=== PATIENT | male | born 1960 | race Caucasian/White ===

== ENCOUNTER 2016-12-24 12:17 | Emergency (ER) | payer BC ==
[~2016-12-24] VITALS: Ht 172.7 cm; Wt 109.1 kg
[~2016-12-24 12:17] MED LIST: AMR2 PO; GLCSR500 PO; LISI-729 PO; PRT/20 PO; SIMV20TA2 PO; ZNTT/150 PO
[2016-12-24 12:25] VITALS: TEMP 36.8; Ht 172.7 cm; Wt 109.1 kg
[2016-12-24] MEDS ORDERED: ONDANSETRON INJ 2 MG/ML 2 ML VIAL IV STA (12:47)
[2016-12-24] MEDS ORDERED: HYDROmorphone INJ 1 MG/ML SYR IV STA ×2 (12:47)
[2016-12-24] MEDS ORDERED: SODIUM CHLORIDE 0.9% 1000ML 1,000 ML IV STA (12:47)
--- NOTE | 2016-12-24 12:58 | EMERGENCY ROOM VISIT NOTE ---
History Report prepared by Biju: Sriram Cota Under the Supervision of: Dr. Aniyah Stuart M.D. First contact with patient: 12:41 Chief Complaint: ABDOMINAL PAIN Stated Complaint: SOB, CHEST PAIN, DIARRHEA Nursing Triage Summary: Triage Note: Pt reports generalized abd pain nausea, vomitting and diarrhea x 1 week. pt reports since yesterday he has been short of breath. History of Present Illness The patient is a 56 year old male who presents to the Emergency Room with complaints of worsening sharp abdominal pain for the past 4 days. The patient additionally complains of shortness of breath, weakness, diarrhea, vomiting, bloating, and gas. The patient states that he has a history of diabetes and a cholecystectomy. Source of History: patient Onset: 4 days ago Position: abdomen Quality: sharp Timing: worsening Associated Symptoms: + SOB, + diarrhea, + vomiting, + weakness Review of Systems See HPI for pertinent positives & negatives. A total of 10 systems reviewed and were otherwise negative. Past Medical & Surgical Medical Problems: (1) Diabetes Surgical Problems: (1) History of cholecystectomy Family History Diabetes mellitus FH: cancer Hypertension Social History Smoking Status: Never Smoker Marital Status: Housing Status: lives with family Occupation Status: employed Current/Historical Medications Scheduled Aspirin (Aspirin Ec), 81 MG PO DAILY Atorvastatin (Lipitor), 1 TAB PO DAILY Citalopram (Citalopram Hydrobromide), 1 TAB PO DAILY Insulin Aspart (Novolog Flexpen), 30 UNITS SQ TID Insulin Detemir (Levemir), 34 UNIT SQ DAILY Ondasetron Odt (Zofran Odt), 4 MG SL Q6H Oxycodone/Acetaminophen 5MG/325MG (Percocet 5MG/325MG), 1 TAB PO QID Pantoprazole (Protonix), 20 MG PO DAILY Miscellaneous Medications Amitriptyline Hcl (Elavil), 50 MG PO Cimetidine (Tagamet), 400 MG PO Gabapentin (Neurontin), 100 MG PO Lisinopril (Zestril), 20 MG PO Allergies Coded Allergies: No Known Allergies (Unverified , 07/20/11) Physical Exam Vital Signs Date Time Temp Pulse Resp B/P Pulse Ox O2 Delivery O2 Flow Rate FiO2 12/24/16 15:38 91 12/24/16 14:55 99 18 132/95 97 Room Air 2/11/17 12:45 101 12/24/16 12:25 36.8 111 20 139/87 99 Room Air Physical Exam CONSTITUTIONAL: Moderate painful distress. HEENT: No icterus, moist mucous membranes NECK: No meningismus, trachea is midline. CARDIOVASCULAR: Regular rate, normal perfusion RESPIRATORY: Unlabored breathing. Clear to auscultation. GASTROINTESTINAL: Diffuse abdominal tenderness GENITOURINARY: No flank tenderness MUSCULOSKELETAL: Full range of motion NEUROLOGIC: No acute gross focal deficits. PSYCHIATRIC: Normal affect SKIN: Normal for ethnicity. Medical Decision & Procedures Laboratory Results 12/24/16 12:40 Red Blood Count 5.51, Mean Corpuscular Volume 87.7, Mean Corpuscular Hemoglobin 31.4, Mean Corpuscular Hemoglobin Concent 35.8, Mean Platelet Volume 10.1, Neutrophils (%) (Auto) 69.8, Lymphocytes (%) (Auto) 14.6, Monocytes (%) (Auto) 13.6, Eosinophils (%) (Auto) 1.1, Basophils (%) (Auto) 0.2, Neutrophils # (Auto ) 5.70, Lymphocytes # (Auto) 1.19, Monocytes # (Auto) 1.11, Eosinophils # (Auto ) 0.09, Basophils # (Auto) 0.02 12/24/16 12:40 Test 12/24/16 12:40 12/24/16 14:54 White Blood Count 8.17 K/uL (4.8-10.8) Red Blood Count 5.51 M/uL (4.7-6.1) Hemoglobin 17.3 g/dL (14.0-18.0) Hematocrit 48.3 % (42-52) Mean Corpuscular Volume 87.7 fL (80-100) Mean Corpuscular Hemoglobin 31.4 pg (25-34) Mean Corpuscular Hemoglobin Concent 35.8 g/dl (32-36) Platelet Count 191 K/uL (130-400) Mean Platelet Volume 10.1 fL (7.4-10.4) Neutrophils (%) (Auto) 69.8 % Lymphocytes (%) (Auto) 14.6 % Monocytes (%) (Auto) 13.6 % Eosinophils (%) (Auto) 1.1 % Basophils (%) (Auto) 0.2 % Neutrophils # (Auto) 5.70 K/uL (1.4-6.5) Lymphocytes # (Auto) 1.19 K/uL (1.2-3.4) Monocytes # (Auto) 1.11 K/uL (0.11-0.59) Eosinophils # (Auto) 0.09 K/uL (0-0.5) Basophils # (Auto) 0.02 K/uL (0-0.2) RDW Standard Deviation 43.2 fL (36.4-46.3) RDW Coefficient of Variation 13.5 % (11.5-14.5) Immature Granulocyte % (Auto) 0.7 % Immature Granulocyte # (Auto) 0.06 K/uL (0.00-0.02) Anion Gap 12.0 mmol/L (3-11) Est Creatinine Clear Calc Drug Dose 66.6 ml/min Estimated GFR () 59.9 Estimated GFR (Non- 51.7 BUN/Creatinine Ratio 10.3 (10-20) Calcium Level 9.1 mg/dl (8.5-10.1) Magnesium Level 2.0 mg/dl (1.8-2.4) Total Bilirubin 0.5 mg/dl (0.2-1) Direct Bilirubin 0.1 mg/dl (0-0.2) Aspartate Amino Transf (AST/SGOT) 11 U/L (15-37) Alanine Aminotransferase (ALT/SGPT) 46 U/L (12-78) Alkaline Phosphatase 90 U/L (45-117) Troponin I < 0.015 ng/ml (0-0.045) Total Protein 7.7 gm/dl (6.4-8.2) Albumin 3.8 gm/dl (3.4-5.0) Lipase 133 U/L (73-393) Beta-Hydroxybutyric Acid 1.16 mg/dL (0.2-2.81) Bedside Glucose 354 mg/dl (70-99) Labs reviewed by ED physician. Medications Administered Medications (Trade) Dose Ordered Sig/Caro Route Start Time Stop Time Status Last Admin Dose Admin Sodium Chloride (Nss 1000ml) 1,000 ml @ 0 mls/hr Q0M STAT IV 12/24/16 12:47 12/24/16 12:52 DC 12/24/16 13:00 0 MLS/HR Ondansetron HCl (Zofran Inj) 4 mg NOW STAT IV 12/24/16 12:47 12/24/16 12:53 DC 12/24/16 13:00 4 MG Hydromorphone HCl (Dilaudid Inj) 1 mg PRN STAT IV 12/24/16 12:47 12/24/16 12:53 DC 12/24/16 13:01 1 MG ED Course 1241: Past medical records reviewed. The patient was evaluated in room C7. A complete history and physical examination was performed. 1247: Dilaudid Inj 1mg IV, Zofran Inj 4mg IV, Sodium Chloride 1000 ml @ 0 wide open mls/hr IV Medical Decision Differential diagnoses include but are not limited to; obstruction, diverticulitis, gastroenteritis. 56-year-old presented to the emergency department for several days of nausea and loose stools with multiple contacts sick with gastrointestinal illnesses. Screening evaluations in the emergency room are negative for acute disease. On reexamination at 4:15 PM prior to discharge. Rx Zofran. Impression Primary Impression: Acute gastroenteritis Scribe Attestation The scribe's documentation has been prepared under my direction and personally reviewed by me in its entirety. I confirm that the note above accurately reflects all work, treatment, procedures, and medical decision making performed by me. Departure Information Prescriptions Ondasetron Odt (ZOFRAN ODT) 4 Mg Tab 4 MG SL Q6H for Nausea, #20 TAB Prov: Aniyah Stuart MD 12/24/16 Patient Instructions My [facility]
[2016-12-24] MEDS ORDERED: OPTIRAY 320 IV PRN (13:00)
[2016-12-24 13:06] LABS: BASO % 0.2 %; BASO ABS # 0.02 K/uL (0-0.2); COMPLETE YES; EOS % 1.1 %; HEMATOCRIT 48.3 % (42-52); IG% 0.7 %; LYMPH % 14.6 %; LYMPH ABS # 1.19 K/uL (1.2-3.4); MEAN CELL VOLUME 87.7 fL (80-100); MEAN CORPUSCULAR HEMOGLOBIN 31.4 pg (25-34); MEAN CORPUSCULAR HGB CONC 35.8 g/dl (32-36); MEAN PLATELET VOLUME 10.1 fL (7.4-10.4); MONO % 13.6 %; NEUT % 69.8 %; PLATELET COUNT 191 K/uL (130-400); RED BLOOD COUNT 5.51 M/uL (4.7-6.1); WHITE BLOOD COUNT 8.17 K/uL (4.8-10.8)
[2016-12-24 13:20] LABS: ALT/SGPT 46 U/L (12-78); AST/SGOT 11 U/L (15-37); BLOOD UREA NITROGEN 16 mg/dl (7-18); BUN/CREATININE RATIO 10.3 (10-20); CALCIUM 9.1 mg/dl (8.5-10.1); CARBON DIOXIDE 22 mmol/L (21-32); CHLORIDE 99 mmol/L (98-107); GLUCOSE 391 mg/dl (70-99); POTASSIUM 5.1 mmol/L (3.5-5.1); SODIUM 133 mmol/L (136-145)
--- NOTE | 2016-12-24 13:37 | DIAGNOSTIC IMAGING REPORT ---
SINGLE VIEW CHEST CLINICAL HISTORY: Dyspnea. Atypical chest pain. FINDINGS: An AP, portable, upright chest radiograph is compared to study dated 10/28/2015 and correlated with chest CT dated 11/26/2015 and PET/CT dated 12/14/15. The examination is degraded by portable technique and patient rotation. The cardiomediastinal silhouette is unremarkable. There is minimal bibasilar atelectasis. The lungs and pleural spaces are otherwise clear. No pneumothorax is seen. The bony thorax is grossly intact. IMPRESSION: No acute cardiopulmonary abnormality. Electronically signed by: Coleman Arambula M.D. 12/24/2016 1:35 PM Dictated Date/Time: 12/24/2016 1:33 PM
[2016-12-24 13:47] LABS: ALKALINE PHOSPHATASE 90 U/L (45-117); BETA-HYDROXYBUTYRATE 1.16 mg/dL (0.2-2.81)
[2016-12-24] MEDS ORDERED: OXYC-57 PO (14:33)
[2016-12-24] MEDS ORDERED: LVMI SQ (14:33)
[2016-12-24] MEDS ORDERED: NVLGI/PEN SQ (14:33)
[2016-12-24] MEDS ORDERED: CITA40TA4 PO (14:33)
[2016-12-24] MEDS ORDERED: GABA-112 PO (14:33)
[2016-12-24] MEDS ORDERED: AMT50 PO (14:33)
[2016-12-24] MEDS ORDERED: CIME-56 PO (14:33)
[2016-12-24] MEDS ORDERED: LISI-725 PO (14:33)
[2016-12-24] MEDS ORDERED: ATOR10TA88 PO (14:33)
[2016-12-24] MEDS ORDERED: ASPI81TA28 PO (14:34)
--- NOTE | 2016-12-24 15:37 | DIAGNOSTIC IMAGING REPORT ---
CT SCAN OF THE ABDOMEN AND PELVIS WITH IV CONTRAST CLINICAL HISTORY: Generalized abdominal pain. COMPARISON STUDY: PET/CT dated 12/14/15. TECHNIQUE: Following the IV administration of 116 cc of Optiray 320, CT scan of the abdomen and pelvis is performed from the lung bases to the proximal femora. Images are reviewed in the axial, sagittal, and coronal planes. IV contrast was administered without complication. Automated dose control exposure was utilized. CT DOSE: 1397.76 mGy.cm FINDINGS: Lung bases: The heart is normal in size noting trace pericardial effusion. The lung bases are clear noting bibasilar atelectasis. There is a tiny hiatal hernia. Liver: The contrast-enhanced liver is enlarged, measuring 22.2 cm in length. Liver demonstrates diffusely diminished attenuation consistent with hepatic steatosis. There is no intrahepatic biliary ductal dilatation. The hepatic veins and portal veins are patent. Gallbladder: Surgically absent noting clips in the gallbladder fossa. Spleen: The spleen is enlarged, measuring 15.7 cm in length. Pancreas: Unremarkable. Adrenal glands: Unremarkable. Kidneys: The contrast enhanced kidneys are normal in size and without hydronephrosis. The kidneys enhance symmetrically. Abdominal vasculature: The abdominal aorta is normal in course and caliber. Bowel: There is a small duodenal diverticulum. There are mildly distended loops of small bowel which are filled with enteric contrast. These measure up to 3.6 cm. Trace interloop fluid is noted. There is no transition point and no evidence of bowel obstruction. This may represent a mild nonspecific enteritis. There is mild/moderate sigmoid diverticulosis without CT evidence of acute diverticulitis. The appendix is well-visualized and normal. Peritoneum: There is no intraperitoneal free air or abdominal ascites. Lymphadenopathy: None. Pelvic viscera: The bladder, prostate, and seminal vesicles are normal as visualized. Skeletal structures: No lytic or blastic lesions are seen. There are bilateral pars defects at L5 with grade 1 anterolisthesis of L5-S1. Advanced degenerative disc space narrowing and endplate sclerosis is noted at this level. IMPRESSION: 1. There are mildly distended loops of distal small bowel which are filled with enteric contrast. There are no thick walled bowel loops identified and there is no evidence of bowel obstruction. Trace interloop fluid is noted. The appearance is nonspecific and could represent a mild enteritis. Clinical correlation will be required. 2. Hepatomegaly and hepatic steatosis. 3. Splenomegaly. 4. Additional findings as above. Electronically signed by: Coleman Arambula M.D. 12/24/2016 3:35 PM Dictated Date/Time: 12/24/2016 3:26 PM
[2016-12-24] MEDS ORDERED: ONDA4TAB10 SL (16:14)
[2016-12-24 16:30] VITALS: BP 134/98; PULSE 102; O2SAT 95
== END 2016-12-24 16:31 | disposition home or self-care (01) ==
LOC: C.EDB 12:17 → C.EDC 16:31
DX: K52.9 Noninfective gastroenteritis and colitis, unspecified (principal); E11.9 Type 2 diabetes mellitus without complications; Z90.49 Acquired absence of other specified parts of digestive tract

== ENCOUNTER 2021-02-18 15:56 | Inpatient (IN) ==
--- OUTSIDE RECORDS SUMMARY | 2021-02-18 15:58 | External Medical Summary | Continuity of Care Document ---
:1960 Author Name Devonte Ambriz, Provider Address Unavailable Unavailable , Care Team Providers Name Role Phone Unavailable Unavailable Unavailable CHLOE BURGER Unavailable Unavailable Unavailable Unavailable Unavailable Problems Hepatomegaly (789.1) (R16.0) Metabolic syndrome (277.7) (E88.81) Cough with hemoptysis (786.39) (R04.2) Depression with anxiety (300.4) (F41.8) Hypertension (401.9) (I10) GERD (gastroesophageal reflux disease) (530.81) (K21.9) Diabetic peripheral neuropathy (250.60) (E11.42) Dyslipidemia (272.4) (E78.5) DM type 2 (diabetes mellitus, type 2) (250.00) (E11.9) SANDS (nonalcoholic steatohepatitis) (571.8) (K75.81) Lung mass (786.6) (R91.8) Allergies and Adverse Reactions No Known Drug Allergies (Allergy) Medications Percocet 5-325 MG Oral Tablet; TAKE 1 TABLET EVERY 6 H OURS NEEDED FOR PAIN. , M.D. Refills: 0 Pantoprazole Sodium 20 MG Oral Tablet Delayed Release; TAKE 1 TABLET DAILY. , M.D. Refills: 0 Glimepiride 4 MG Oral Tablet; TAKE 1 TABLET DAILY. , M.D. Refills: 0 Victoza 18 MG/3ML SOLKatina Rodríguez Refills: 0 Lisinopril-hydroCHLOROthiazide 20-12.5 MG Oral Tablet; TAKE 1 TABLET DAILY. , M.D. Refills: 0 metFORMIN HCl - 1000 MG Oral Tablet; TAKE 1 TABLET TWICE FLORENTINO LY. M.D. Refills: 0 Cimetidine 400 MG Oral Tablet; Take 1 tablet twice daily , M .D. Refills: 0 Atorvastatin Calcium 20 MG Oral Tablet; TAKE 1 TABLET DAILY. , M.D. Refills: 0 Amitriptyline HCl - 50 MG Oral Tablet; TAKE 1 TABLET AT BEDT KAE. , M.D. Refills: 0 Aspirin 81 MG TABS; TAKE 1 TABLET DAILY. , M.D. Refills: 0 Procedures History of Colonoscopy (Fiberoptic) Stat us: Completed History of Cholecystectomy Status: Compl eted 20-Jul-2011 0:00 History of Back Surgery Status: Complete d Immunizations PPD On: 07-Dec-2015 9:34 Lot #: [id number], [employer] Family History Father Family history of malignant neoplasm (V16.9) (Z80.9) Status: Active Grandfather Family history of lung cancer (V16.1) (Z80.1) Status: Active Social History - Smoking Status Never smoked tobacco Plan of Treatment Planned Observations Planned Goals not documented Results No Known Results Results not documented
--- OUTSIDE RECORDS SUMMARY | 2021-02-18 15:58 | External Medical Summary | Continuity of Care Document ---
:1960 Author Name Devonte Ambriz, Provider Address Unavailable Unavailable , Care Team Providers Name Role Phone Unavailable Unavailable Unavailable CHLOE BURGER Unavailable Unavailable Unavailable Unavailable Unavailable Problems SANDS (nonalcoholic steatohepatitis) (571.8) (K75.81) DM type 2 (diabetes mellitus, type 2) (250.00) (E11.9) Dyslipidemia (272.4) (E78.5) Diabetic peripheral neuropathy (250.60) (E11.42) GERD (gastroesophageal reflux disease) (530.81) (K21.9) Hypertension (401.9) (I10) Depression with anxiety (300.4) (F41.8) Cough with hemoptysis (786.39) (R04.2) Lung mass (786.6) (R91.8) Metabolic syndrome (277.7) (E88.81) Hepatomegaly (789.1) (R16.0) Allergies and Adverse Reactions No Known Drug [...] Tablet; TAKE 1 TABLET AT BEDT KAE. M.D. Refills: 0 Aspirin 81 MG TABS; [...]
[2021-02-18] MEDS ORDERED: DAPTOmycin 400 MG in SYRINGE 0 ML IV STA (19:01)
[2021-02-18] MEDS ORDERED: PIPERACILLIN/TAZOBACTAM 4.5 GM/120 ML BAG IV STA (19:01)
[2021-02-18 19:44] LABS: Basophils # (auto) 0.01 K/uL (0-0.2); Basophils % (auto) 0.1 %; Eosinophils # (auto) 0.11 K/uL (0-0.5); Hematocrit (blood only) 41.5 % (42-52); Immature Granulocytes # (auto) 0.02 K/uL (0.00-0.02); Immature Granulocytes % (auto) 0.2 %; Lymphocytes # (auto) 1.45 K/uL (1.2-3.4); Lymphocytes % (auto) 13.7 %; Mean Corpuscular Hemoglobin 30.7 pg (25-34); Mean Corpuscular Hgb Conc 36.1 g/dL (32-36); Mean Platelet Volume 10.2 fL (7.4-10.4); Monocytes # (auto) 0.93 K/uL (0.11-0.59); Monocytes % (auto) 8.8 %; Neutrophils # (auto) 8.05 K/uL (1.4-6.5); Neutrophils % (auto) 76.2 %; Platelet Count 226 K/uL (130-400); RDW Coefficient of Variation 12.8 % (11.5-14.5); RDW Standard Deviation 39.1 fL (36.4-46.3); Red Blood Count 4.88 M/uL (4.7-6.1); White Blood Count 10.57 K/uL (4.8-10.8)
[2021-02-18] MEDS: HYDROmorphone INJ 0.5 MG/0.5 ML SYR IV PRN ×2 (19:49→20:06)
[2021-02-18 19:51] LABS: Alanine Aminotransferase 41 U/L (12-78); Albumin Level 3.3 gm/dl (3.4-5.0); Aspartate Aminotransferase 10 U/L (15-37); BUN Creatinine Ratio 13.5 (10-20); Blood Urea Nitrogen 14 mg/dl (7-18); Carbon Dioxide 28 mmol/L (21-32); Chloride 101 mmol/L (98-107); Creatinine Clr Calc Pharmacy 82.7 ml/min; Est GFR (African American) 88.6; Est GFR (Non-African American) 76.4; Glucose 298 mg/dl (70-99); Sodium 133 mmol/L (136-145); Uric Acid 3.6 mg/dl (2.6-7.2)
[2021-02-18 19:56] LABS: Albumin Globulin Ratio 0.7 (0.9-2); Alkaline Phosphatase 111 U/L (45-117); Bilirubin,Total 0.3 mg/dl (0.2-1); Globulin 4.5 gm/dl (2.5-4.0); Total Protein 7.8 gm/dl (6.4-8.2); Troponin I < 0.015 ng/ml (0-0.045)
--- NOTE | 2021-02-18 20:25 | Emergency Department Note ---
Impression & Plan Cellulitis of finger of left hand, Cellulitis of dorsum of hand, Chest pain ED Provider Note INFORMANT: Patient ED PROVIDER(S): Sam Murphy MD CHIEF COMPLAINT: Infection PLAN: Disposition: Admitted Condition: Good Outpatient prescription management: none Referral: None MEDICAL DECISION MAKING: Patient presented to the emergency department noting worsening pain, swelling, and redness in her left hand starting from the third digit. He was seen at his outpatient [facility] clinic today and given a injection of antibiotics. A prescription was written but he did not fill this. The pain escalated and he presented to the ER for evaluation. The patient was quite uncomfortable. He was also noting experiencing some chest pain that started this evening. An ECG was performed and was normal. Blood work was obtained. Troponin was negative. His CBC had a left shift on differential. His white count was at the upper limits of normal. The patient's chemistry panel was unremarkable. Uric acid was within normal limits. Patient's inflammatory markers were elevated. He did have cultures obtained. The patient was given broad-spectrum antibiotics due to his history of diabetes. He was treated with Zosyn and daptomycin. He required IV Dilaudid for pain control. X-ray imaging was ordered. Given the extent of the pain and spreading redness of the hand into the wrist area the patient will benefit from further IV antibiotic treatment and possible consultation. Also w ith his chest pain he will need further evaluation. Consultation was made with Dr. Aubrey Ocasio, [facility] hospitalist service for further management. Triage Nursing notes reviewed and agree them. Additional history obtained from patient's Vital Signs: reviewed and remarkable for borderline tachycardia and significant hypertension Differential diagnosis: Etiologies such as cellulitis, abscess, MRSA infection, dermatitis, drug eruption, necrotizing fasciitis, gout, cardiac sources, as well as others were entertained. Diagnostics interpreted by me: ECG: Rate: 87 Rhythm:Normal sinus [place]:Normal QRS:Normal ST segements:No elevation or depression Other:No PACs or PVCs Cardiac Monitoring:Cardiac monitoring ordered by me: The patient was placed on continuous cardiac monitoring and observed. It revealed a normal sinus rhythm at 95 beats per minute without ectopy or evidence of dysrhythmia. Imaging studies: X-ray imaging of the left hand reveals some soft tissue swelling of the third digit however no evidence of subcu air, fracture, or dislocation present. [facility] The patient is a 60 year old male who presents to the Emergency Room with complaints of left hand infection. This started a few days ago and is spreading from the third finger proximally. He has redness and streaking up the left hand. He feels like it may be from a spider bite. The patient denies any direct trauma to the area. He noted having x-rays and receiving an IM injection of antibiotic today at his outpatient clinic. The patient does have a history of diabetes. The patient also notes the following associated symptoms, chest pain which started this evening. The patient has found no relieving factors. Current pain is rated as 10/10. Pt denies LOC, headache, fevers, chills, diaphoresis, visual changes, neck pain, breathing difficulties, nausea, vomiting, abdominal pain, back pain, numbness, weakness, lymphadenopathy, or ot her complaints. ROS: See above HPI for pertinent positives & negatives. A total of 10 systems reviewed and were otherwise negative. PAST MEDICAL HISTORY:See Below , diabetes PAST SURGICAL HISTORY:See Below, FAMILY HISTORY:See Below SOCIAL HISTORY:See Below, HOME MEDICATIONS:See Below ALLERGIES:See Below VITALS:See Below PHYSICAL EXAMINATION: GENERAL: Awake, alert, very uncomfortable-appearing, in mild distress HENT: Normocephalic, atraumatic. Oropharynx unremarkable. EYES: Normal conjunctiva. Sclera non-icteric. NECK: Inspection normal. Non-tender. Supple. No nuchal rigidity. FROM. No masses. RESPIRATORY: Clear to auscultation. No wheezes. No rales. Normal respiratory effort. CARDIAC: Borderline tachycardic rate. Normal rhythm. No murmurs. No rubs. Extremities warm and well perfused. Pulses equal. No JVD. GI: Soft, non-distended. No tenderness to palpation. No rebound or guarding. No masses. RECTAL: Deferred. MUSCULOSKELETAL: Examination of the left hand reveals a significantly swollen third digit with redness, warmth and tenderness extending from the proximal nail fold approximately through the dorsum aspect of the hand with streaking going up to the wrist concerning for cellulitis. No crepitus. Range of motion of the digit is limited secondary to pain. No discharge present. No vesicles. Cap refill less than 2 seconds. NEURO: Normal sensorium. No sensory or motor deficits noted. SKIN: No rash or jaundice noted. Sam Murphy MD Past Med/Surg History Social History Smoking Status: Never smoker Feels Safe at Home: Yes Allergies Allergies Allergy/AdvReac Type Severity Reaction Status Date / Time No Known Allergies Allergy Unverified 07/20/11 06:01 Home Meds Home Medications Medication Instructions Recorded Confirmed Pantoprazole (Protonix) 20 mg PO DAILY #30 07/20/11 ASPIRIN (ASPIRIN EC) 81 mg PO DAILY #0 12/24/16 ATORVASTATIN (LIPITOR) 1 tab PO DAILY 30 Days #30 tab 12/24/16 Amitriptyline Hcl (Elavil) 50 mg PO #0 tab 12/24/16 Cimetidine (Tagamet) 400 mg PO #0 tab 12/24/16 Citalopram (Citalopram 1 tab PO DAILY 90 Days #90 tab 12/24/16 Hydrobromide) Gabapentin (Neurontin) 100 mg PO #0 cap 12/24/16 Insulin Aspart (NOVOLOG FLEXPEN) 30 unit SUBCUT TID #0 12/24/16 Insulin Detemir (Levemir) 34 unit SUBCUT DAILY #0 12/24/16 Lisinopril (Zestril) 20 mg PO #0 tab 12/24/16 OXYCODONE/ACETAMINOPHEN 5MG/325MG 1 tab PO QID 30 Days #120 tab 12/24/16 (PERCOCET 5MG/325MG) Results & Data (ED) Vital Signs Vital Signs - 24 hr 02/18/21 16:36 02/18/21 20:08 Temperature 37.2 C Temperature Source Temporal Artery Scan Pulse Rate 101 H Pulse Rate [Right] 95 H Pulse Rhythm Regular Pulse Rhythm [Right] Regular Pulse Strength Normal Pulse Strength [Right] Normal Respiratory Rate 20 20 Respiratory Effort / Characteristics Non-Labored Spontaneous Non-Labored Spontaneous Respiratory Depth Normal Normal Blood Pressure 183/109 H Blood Pressure [Right Arm] 187/113 H Blood Pressure Mean 133 Blood Pressure Mean [Right Arm] 137 Blood Pressure Position [Right Arm] Lying Pulse Oximetry 97 100 Oxygen Delivery Method Room Air Room Air Sepsis Recent Fever Within 48 Hours No Sepsis New/Unexplained Change in Mental Status N/A Sepsis Action Taken by Nursing No Action Required Laboratory Data Result diagrams: 02/18/21 19:04 02/18/21 19:04 Lab Results 02/18/21 02/18/21 02/18/21 Range/Units 19:04 19:04 19:04 WBC 10.57 (4.8-10.8) K/uL RBC 4.88 (4.7-6.1) M/uL Hgb 15.0 (14.0-18.0) g/dL Hct 41.5 L (42-52) % MCV 85.0 (80-100) fL MCH 30.7 (25-34) pg MCHC 36.1 H (32-36) g/dL RDW Std Deviation 39.1 (36.4-46.3) fL RDW Coeff of [place] 12.8 (11.5-14.5) % Plt Count 226 (130-400) K/uL MPV 10.2 (7.4-10.4) fL Immature Gran % (Auto) 0.2 % Neut % (Auto) 76.2 % Lymph % (Auto) 13.7 % [place] % (Auto) 8.8 % Eos % (Auto) 1.0 % Baso % (Auto) 0.1 % Neut # (Auto) 8.05 H (1.4-6.5) K/uL Lymph # (Auto) 1.45 (1.2-3.4) K/uL [place] # (Auto) 0.93 H (0.11-0.59) K/uL Eos # (Auto) 0.11 (0-0.5) K/uL Baso # (Auto) 0.01 (0-0.2) K/uL Immature Gran # (Auto) 0.02 (0.00-0.02) K/uL ESR 23 H (0-14) mm/hr Sodium 133 L (136-145) mmol/L Potassium 4.0 (3.5-5.1) mmol/L Chloride 101 (98-107) mmol/L Carbon Dioxide 28 (21-32) mmol/L Anion Gap 4.0 (3-11) BUN 14 (7-18) mg/dl Creatinine 1.06 (0.6-1.4) mg/dl Est Cr Clr Drug Dosing 82.7 ml/min Est GFR ( Amer) 88.6 Est GFR (Non-Af Amer) 76.4 BUN/Creatinine Ratio 13.5 (10-20) Glucose 298 H (70-99) mg/dl Uric Acid 3.6 (2.6-7.2) mg/dl Calcium 9.0 (8.5-10.1) mg/dl Total Bilirubin 0.3 (0.2-1) mg/dl AST 10 L (15-37) U/L ALT 41 (12-78) U/L Alkaline Phosphatase 111 (45-117) U/L Troponin I < 0.015 (0-0.045) ng/ml C-Reactive Protein 4.30 H (0-0.29) mg/dl Total Protein 7.8 (6.4-8.2) gm/dl Albumin 3.3 L (3.4-5.0) gm/dl Globulin 4.5 H (2.5-4.0) gm/dl Albumin/Globulin Ratio 0.7 L (0.9-2) Procalcitonin (0-0.5) ng/ml COVID-19 Eval Order 02/18/21 02/18/21 Range/Units 19:04 19:58 WBC (4.8-10.8) K/uL RBC (4.7-6.1) M/uL Hgb (14.0-18.0) g/dL Hct (42-52) % MCV (80-100) fL MCH (25-34) pg MCHC (32-36) g/dL RDW Std Deviation (36.4-46.3) fL RDW Coeff of [place] (11.5-14.5) % Plt Count (130-400) K/uL MPV (7.4-10.4) fL Immature Gran % (Auto) % Neut % (Auto) % Lymph % (Auto) % [place] % (Auto) % Eos % (Auto) % Baso % (Auto) % Neut # (Auto) (1.4-6.5) K/uL Lymph # (Auto) (1.2-3.4) K/uL [place] # (Auto) (0.11-0.59) K/uL Eos # (Auto) (0-0.5) K/uL Baso # (Auto) (0-0.2) K/uL Immature Gran # (Auto) (0.00-0.02) K/uL ESR (0-14) mm/hr Sodium (136-145) mmol/L Potassium (3.5-5.1) mmol/L Chloride (98-107) mmol/L Carbon Dioxide (21-32) mmol/L Anion Gap (3-11) BUN (7-18) mg/dl Creatinine (0.6-1.4) mg/dl Est Cr Clr Drug Dosing ml/min Est GFR ( Amer) Est GFR (Non-Af Amer) BUN/Creatinine Ratio (10-20) Glucose (70-99) mg/dl Uric Acid (2.6-7.2) mg/dl Calcium (8.5-10.1) mg/dl Total Bilirubin (0.2-1) mg/dl AST (15-37) U/L ALT (12-78) U/L Alkaline Phosphatase (45-117) U/L Troponin I (0-0.045) ng/ml C-Reactive Protein (0-0.29) mg/dl Total Protein (6.4-8.2) gm/dl Albumin (3.4-5.0) gm/dl Globulin (2.5-4.0) gm/dl Albumin/Globulin Ratio (0.9-2) Procalcitonin < 0.05 (0-0.5) ng/ml COVID-19 Eval Order [facility]FluRsv at [facility] Administered Medications Discontinued Medications Hydromorphone HCl (Hydromorphone Inj 0.5 Mg/0.5 Ml Syr) 0.5 mg IV Q15M PRN PRN Reason: Pain Stop: 03/04/21 19:02 Last Admin: 02/18/21 20:06 Dose: 0.5 mg Documented by: [id number] Admin: 02/18/21 19:49 Dose: 0.5 mg Documented by: [id number] Daptomycin 400 mg/ Syringe 8 mls @ 4 mls/min IV NOW STA; Protocol Stop: 02/18/21 19:02 Last Admin: 02/18/21 20:03 Dose: 4 mls/min Documented by: [id number] Piperacillin Sod/Tazobactam Sod (Zosyn) 4.5 gm in 120 mls @ 200 mls/hr IV NOW STA Stop: 02/18/21 19:36 Last Admin: 02/18/21 20:03 Dose: 200 mls/hr Documented by: [id number] Discharge Plan Visit Data Chief Complaint: Infection Stated Complaint: LT HAND, FINGER INFECTION ED Provider: Sam Murphy Discharge Problem: Cellulitis of finger of left hand, Cellulitis of dorsum of hand, Chest pain Forms Stand Alone Forms: [facility] Prescriptions Prescriptions: No Action Pantoprazole (Protonix) 20 MG tablet 20 mg PO DAILY Qty: 30 RF: 0 ATORVASTATIN (LIPITOR) 10 MG tablet 1 tab PO DAILY 30 Days Qty: 30 RF: 5 Amitriptyline Hcl (Elavil) 50 MG tablet 50 mg PO Qty: 0 RF: 0 Cimetidine (Tagamet) 400 MG tablet 400 mg PO Qty: 0 RF: 0 Citalopram (Citalopram Hydrobromide) 40 MG tablet 1 tab PO DAILY 90 Days Qty: 90 RF: 1 Gabapentin (Neurontin) 100 MG capsule 100 mg PO Qty: 0 RF: 0 Insulin Aspart (NOVOLOG FLEXPEN) 100 UNITS/ML INJECTION 30 unit subcut TID Qty: 0 RF: 0 Insulin Detemir (Levemir) 100 UNITS/ML INJECTION 34 unit subcut DAILY Qty: 0 RF: 0 Lisinopril (Zestril) 20 MG tablet 20 mg PO Qty: 0 RF: 0 OXYCODONE/ACETAMINOPHEN 5MG/325MG (PERCOCET 5MG/325MG) tablet 1 tab PO QID 30 Days Qty: 120 RF: 0 ASPIRIN (ASPIRIN EC) 81 MG tablet 81 mg PO DAILY Qty: 0 RF: 0
[2021-02-18] MEDS ORDERED: traMADol HCL 50 MG TABLET PO PRN (20:30)
[2021-02-18] MEDS ORDERED: ACETAMINOPHEN 325 MG TAB PO PRN (20:30)
[2021-02-18] MEDS ORDERED: lisinopril 5 MG TAB PO ONE (20:31)
--- NOTE | 2021-02-18 20:44 | XRay Report ---
XR hand LT min 3V routine CLINICAL HISTORY: 3rd finger and hand cellulitis COMPARISON: None. DISCUSSION: No acute fractures or dislocations are visualized. There is an old fifth metacarpal fract ure. There are osteoarthritic changes most pronounced the level the distal interphalangeal joints. Th ere is soft tissue edema most pronounced involving the third finger. There are no bony destructive ch anges to indicate acute osteomyelitis IMPRESSION: 1. Old posterior back changes 2. Osteoarthritic changes 3. No acute fractures 4. Soft tissue swelling 5. No conventional radiographic evidence of acute osteomyelitis ACT 112: Negative or not required by law. Electronically signed by: Christian Villaseñor M.D. 02/18/2021 8:42 PM
[2021-02-18 20:49] LABS: Magnesium 2.1 mg/dl (1.8-2.4)
[2021-02-18] MEDS: MoRPHine SULFATE 4 MG/ML 1 ML CARP\\VIAL IV PRN (20:59)
[2021-02-18 21:01] LABS: Influenza A virus by PCR Negative (Neg); Influenza B virus by PCR Negative (Neg); RSV by PCR Negative (Neg); SARS CoV2 RNA(COVID-19) InHosp NEGATIVE (Negative)
[2021-02-18] MEDS ORDERED: INSULIN GLARGINE SOLOSTAR 100 UNITS/ML 3 ML PEN SC STA (21:04)
--- NOTE | 2021-02-18 21:29 | History & Physical Report ---
Date of Service February 18, 2021 Assessment & Plan (1) Asymptomatic hypertensive urgency: Secondary to pain from left middle finger cellulitis, no sepsis for now History medication noncompliance hyperlipidemia, currently not on statin secondary to medication noncompliance DM2 insulin requiring, patient hyperglycemic secondary to medication noncompliance, hemoglobin A1c of 10.17 January 2018 nonalcoholic steatohepatitis as per records anxiety/mood disorder, stable off maintenance medications OBS Medical telemetry Doxycycline Orthopedics consult Re: Left middle finger cellulitis Resume home lisinopril Basal insulin, ISS BG goal [id number], carb count coverage, update hemoglobin A1c DM education DVT prophylaxis. Lovenox subcu Full code Text document was generated using [employer] voice recognition software. It may contain grammatical or spelling errors. Kindly contact undersigned for clarification of any documentation item in question. History of Present Illness Chief Complaint: Left middle finger swelling Primary Care Provider: Dr. Dickinson History obtained from patient, family, and records. Medical history significant for hypertension, hyperlipidemia, DM2 insulin requiring, hyperlipidemia, nonalcoholic steatohepatitis, GERD, anxiety/mood disorder, medication noncompliance, hx terminated medication usage agreement as per outpatient records (failed urine drug screen 2016). Last confinement 2010 under General Surgery service for acute cholecystitis status post cholecystectomy. Patient stopped taking home medications (lisinopril, atorvastatin, home insulin, etc.) more than two years ago because he felt sick from taking them. Last PCP visit was 3 years ago. 2 days history of achy swelling on left middle finger with note of some yellow drainage. No fever, no chills. No recollection of recent trauma. Patient seen at PCPs office today. Impression was finger cellulitis. IM ceftriaxone given at the office. Patient prescribed Keflex and Bactrim. Patient instructed to follow-up at the office tomorrow and to go to ER for worsening symptoms. SBP noted to be 210s at PCPs office. Patient denies headache, chest pain, shortness of breath, abdominal pain. Daptomycin and Zosyn administered at the ER. Medical History as above Surgical History : Back surgery, cholecystectomy Family History : DM, stomach cancer, hypertension, heart disease Personal/Social history : Non-smoker, no recent EtOH intake in years as per patient/, lawn care business Allergies Allergy/AdvReac Type Severity Reaction Status Date / Time No Known Allergies Allergy Unverified 02/18/21 22:13 Home Medications Medication Instructions Recorded Confirmed Type No Known Home Medications 02/18/21 02/18/21 History Past Med/Surg History Social History Smoking Status: Never smoker Hx Alcohol Use: No Hx Substance Use: Yes 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: Days (ago) 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 Other:: crystal meth - "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" Beliefs That Will Affect Care: None Current Living Situation: Spouse and Family Feels Safe at Home: Yes Safety Concerns: Feels Safe At This Time Review of Systems Review of Systems: As per HPI, all 10 systems reviewed, all other ROS negative Physical Exam Physical Exam: GENERAL: Slightly uncomfortable, obese, pleasant, no respiratory distress SKIN: Normal color, warm HEENT: Alopecia, pink palpebral conjunctivae, no ptosis, dry buccal mucosa NECK : Supple, no tenderness CHEST : CTA, no tenderness HEART : RRR, no obvious murmurs ABDOMEN: Some distention, nontender EXTREMITIES : No LE swelling/tenderness, tender indurated left middle finger with swelling with some extension to the hand, no other conspicuous deformities noted NEUROLOGIC : Coherent, no facial asymmetry, no other gross focality Results & Data Results & Data ([facility]) Vital Signs (Past 12 Hours) Vital Signs Temp Pulse Pulse Resp BP BP Pulse Ox 02/18/21 20:08 95 H 20 187/113 H 100 02/18/21 16:36 37.2 C 101 H 20 183/109 H 97 Laboratory Results Laboratory Results WBC 10.57 K/uL (4.8-10.8) 02/18/21 19:04 RBC 4.88 M/uL (4.7-6.1) 02/18/21 19:04 Hgb 15.0 g/dL (14.0-18.0) 02/18/21 19:04 Hct 41.5 % (42-52) L 02/18/21 19:04 MCV 85.0 fL (80-100) 02/18/21 19:04 MCH 30.7 pg (25-34) 02/18/21 19:04 MCHC 36.1 g/dL (32-36) H 02/18/21 19:04 RDW Std Deviation 39.1 fL (36.4-46.3) 02/18/21 19:04 RDW Coeff of [place] 12.8 % (11.5-14.5) 02/18/21 19:04 Plt Count 226 K/uL (130-400) 02/18/21 19:04 MPV 10.2 fL (7.4-10.4) 02/18/21 19:04 Immature Gran % (Auto) 0.2 % 02/18/21 19:04 Neut % (Auto) 76.2 % 02/18/21 19:04 Lymph % (Auto) 13.7 % 02/18/21 19:04 Price % (Auto) 8.8 % 02/18/21 19:04 Eos % (Auto) 1.0 % 02/18/21 19:04 Baso % (Auto) 0.1 % 02/18/21 19:04 Neut # (Auto) 8.05 K/uL (1.4-6.5) H 02/18/21 19:04 Lymph # (Auto) 1.45 K/uL (1.2-3.4) 02/18/21 19:04 Price # (Auto) 0.93 K/uL (0.11-0.59) H 02/18/21 19:04 Eos # (Auto) 0.11 K/uL (0-0.5) 02/18/21 19:04 Baso # (Auto) 0.01 K/uL (0-0.2) 02/18/21 19:04 Immature Gran # (Auto) 0.02 K/uL (0.00-0.02) 02/18/21 19:04 ESR 23 mm/hr (0-14) H 02/18/21 19:04 Sodium 133 mmol/L (136-145) L 02/18/21 19:04 Potassium 4.0 mmol/L (3.5-5.1) 02/18/21 19:04 Chloride 101 mmol/L (98-107) 02/18/21 19:04 Carbon Dioxide 28 mmol/L (21-32) 02/18/21 19:04 Anion Gap 4.0 (3-11) 02/18/21 19:04 BUN 14 mg/dl (7-18) 02/18/21 19:04 Creatinine 1.06 mg/dl (0.6-1.4) 02/18/21 19:04 Est Cr Clr Drug Dosing 82.7 ml/min 02/18/21 19:04 Est GFR ( Amer) 88.6 02/18/21 19:04 Est GFR (Non-Af Amer) 76.4 02/18/21 19:04 BUN/Creatinine Ratio 13.5 (10-20) 02/18/21 19:04 Glucose 298 mg/dl (70-99) H 02/18/21 19:04 Uric Acid 3.6 mg/dl (2.6-7.2) 02/18/21 19:04 Calcium 9.0 mg/dl (8.5-10.1) 02/18/21 19:04 Magnesium 2.1 mg/dl (1.8-2.4) 02/18/21 19:04 Magnesium Cancelled 02/18/21 19:04 Total Bilirubin 0.3 mg/dl (0.2-1) 02/18/21 19:04 AST 10 U/L (15-37) L 02/18/21 19:04 ALT 41 U/L (12-78) 02/18/21 19:04 Alkaline Phosphatase 111 U/L (45-117) 02/18/21 19:04 Troponin I < 0.015 ng/ml (0-0.045) 02/18/21 19:04 C-Reactive Protein 4.30 mg/dl (0-0.29) H 02/18/21 19:04 Total Protein 7.8 gm/dl (6.4-8.2) 02/18/21 19:04 Albumin 3.3 gm/dl (3.4-5.0) L 02/18/21 19:04 Globulin 4.5 gm/dl (2.5-4.0) H 02/18/21 19:04 Albumin/Globulin Ratio 0.7 (0.9-2) L 02/18/21 19:04 Procalcitonin < 0.05 ng/ml (0-0.5) 02/18/21 19:04 COVID-19 Eval Order [facility]FluRsv at [facility] 02/18/21 19:58 SARS-CoV-2 (PCR) NEGATIVE (Negative) 02/18/21 19:58 Influenza Type A (PCR) Negative (Neg) 02/18/21 19:58 Influenza Type B (PCR) Negative (Neg) 02/18/21 19:58 RSV (RT-PCR) Negative (Neg) 02/18/21 19:58 Impressions Hand X-Ray 02/18/21 19:46 XR hand LT min 3V routine CLINICAL HISTORY: 3rd finger and hand cellulitis COMPARISON: None. DISCUSSION: No acute fractures or dislocations are visualized. There is an old fifth metacarpal fracture. There are osteoarthritic changes most pronounced the level the distal interphalangeal joints. There is soft tissue edema most pronounced involving the third finger. There are no bony destructive changes to indicate acute osteomyelitis IMPRESSION: 1. Old posterior back changes 2. Osteoarthritic changes 3. No acute fractures 4. Soft tissue swelling 5. No conventional radiographic evidence of acute osteomyelitis ACT 112: Negative or not required by law. Electronically signed by: Christian Villaseñor M.D. 02/18/2021 8:42 PM Diagnostic Findings EKG as per my interpretation: Rate 85, NSR, normal axis, no ischemia
[2021-02-18] MEDS ORDERED: DOXYCYCLINE HYCLATE 100 MG in DEXTROSE 5% 100 ML IV STA (21:33)
[2021-02-18] MEDS ORDERED: INSULIN ASPART 100 UNITS/ML 3 ML PEN SC SCH (21:41)
[2021-02-18] MEDS ORDERED: LABETALOL HCL IV 5 MG/ML 20ML IV STA (23:31)
[2021-02-18] MEDS ORDERED: traMADol HCL 50 MG TABLET PO STA (23:32)
[2021-02-18] MEDS ORDERED: lisinopril 5 MG TAB PO STA (23:33)
[2021-02-19 00:07] LABS: Partial Thromboplastin Ratio 1.1; Partial Thromboplastin Time 27.9 Seconds (21.0-31.0)
[2021-02-19] MEDS ORDERED: SODIUM CHLORIDE 0.9% 1000ML 1,000 ML IV ONE (01:11)
[2021-02-19] MEDS ORDERED: PROMETHAZINE HCL 12.5 MG in SODIUM CHLORIDE 0.9% 50 ML IV PRN (01:11)
[2021-02-19] MEDS ORDERED: CARBOHYDRATES FOR HYPOGLYCEMIA PO PRN ×2 (01:15→01:26)
[2021-02-19] MEDS ORDERED: GLUCOSE 10 TABS/TUBE PO PRN ×2 (01:15→01:26)
[2021-02-19] MEDS ORDERED: GLUCOSE 40% GEL 15 GM TUBE PO PRN ×2 (01:15→01:26)
[2021-02-19] MEDS ORDERED: DEXTROSE 50% 50 ML SYRINGE IV PRN ×2 (01:15→01:26)
[2021-02-19] MEDS ORDERED: GLUCAGON FOR INJ 1 MG VIAL IM PRN (01:15)
[2021-02-19] MEDS ORDERED: GLUCAGON FOR INJ 1 MG VIAL SQ PRN (01:26)
[2021-02-19] MEDS ORDERED: LORazepam 0.25 MG/0.5 ML VIAL IV PRN (01:26)
[2021-02-19] MEDS ORDERED: OPTIRAY 320 125ml IV ONE (01:47)
[2021-02-19] MEDS: MoRPHine SULFATE 4 MG/ML 1 ML CARP\\VIAL IV PRN (02:56)
[2021-02-19] MEDS ORDERED: NITROGLYCERIN SL 0.4 MG/TAB TAB SL STA (03:56)
--- NOTE | 2021-02-19 03:59 | Communication Note ---
Date of Service: February 19, 2021 Notified by RN around 4 AM of patient complaint of left-sided chest pressure going to left scapula. BP 172/101 as per RN. Chest pain improved after nitroglycerin administration as per RN. EKG as per my interpretation : Rate 90, NSR, normal axis, no ischemia AP Chest pain relieved by nitroglycerin Uncontrolled hypertension Rule out ACS given risk factors Check troponin Aspirin for CAD prevention until ACS ruled out Titrate Lisinopril TTE, Cardiology consult RE chest pain N.p.o. until patient seen by Cardiology. Will relay to AM provider.
[2021-02-19] MEDS ORDERED: lisinopril 10 MG TAB PO ONE (04:02)
[2021-02-19] MEDS ORDERED: ASPIRIN 81 MG ECTAB PO STA (04:43)
[2021-02-19] MEDS ORDERED: SODIUM CHLORIDE 0.9% 1000ML 1,000 ML IV SCH (05:00)
[2021-02-19 05:01] LABS: Basophils # (auto) 0.01 K/uL (0-0.2); Basophils % (auto) 0.1 %; Eosinophils # (auto) 0.06 K/uL (0-0.5); Eosinophils % (auto) 0.7 %; Hematocrit (blood only) 38.3 % (42-52); Hemoglobin 13.8 g/dL (14.0-18.0); Immature Granulocytes # (auto) 0.02 K/uL (0.00-0.02); Immature Granulocytes % (auto) 0.2 %; Lymphocytes # (auto) 1.52 K/uL (1.2-3.4); Lymphocytes % (auto) 16.9 %; Mean Corpuscular Hemoglobin 30.3 pg (25-34); Mean Corpuscular Volume 84.2 fL (80-100); Mean Platelet Volume 9.7 fL (7.4-10.4); Monocytes # (auto) 0.82 K/uL (0.11-0.59); Monocytes % (auto) 9.1 %; Neutrophils # (auto) 6.59 K/uL (1.4-6.5); Platelet Count 219 K/uL (130-400); RDW Coefficient of Variation 12.8 % (11.5-14.5); RDW Standard Deviation 38.6 fL (36.4-46.3); Red Blood Count 4.55 M/uL (4.7-6.1); White Blood Count 9.02 K/uL (4.8-10.8)
[2021-02-19 05:12] LABS: Partial Thromboplastin Ratio 1.1; Partial Thromboplastin Time 28.3 Seconds (21.0-31.0)
[2021-02-19 05:38] LABS: Estimated Average Glucose 335 mg/dl; Hemoglobin A1C 13.3 % (4.5-5.6)
[2021-02-19 05:51] LABS: Blood Urea Nitrogen 13 mg/dl (7-18); Calcium 8.4 mg/dl (8.5-10.1); Carbon Dioxide 26 mmol/L (21-32); Chloride 100 mmol/L (98-107); Creatinine Clr Calc Pharmacy 107.5 ml/min; Est GFR (African American) 111.6; Est GFR (Non-African American) 96.3; Glucose 310 mg/dl (70-99); Lipase 90 U/L (73-393); Sodium 131 mmol/L (136-145); Troponin I < 0.015 ng/ml (0-0.045)
[2021-02-19] MEDS ORDERED: INSULIN GLARGINE SOLOSTAR 100 UNITS/ML 3 ML PEN SC STA (06:05)
[2021-02-19 06:06] LABS: Beta-Hydroxybutyrate 1.04 mg/dl (0.2-2.81)
[2021-02-19 07:50] LABS: Appearance Urine Clear (Clear); Bacteria Urine Automated Negative (Negative); Bilirubin Urine Negative (Negative); Blood Urine 1+ (Negative); Color Urine Yellow; Epithelial Cell Urine Auto 0-5 /lpf (0-5); Glucose Urine UA 3+ (Negative); Ketones Urine Negative (Negative); Leukocyte Esterase Urine Negative (Negative); Nitrite Urine Negative (Negative); Protein Urine 2+ (Negative); Specific Gravity Urine 1.043 (1.000-1.030); Urobilinogen Urine Negative (Negative)
--- NOTE | 2021-02-19 07:51 | CT Scan Report ---
CT angio chest PE protocol CT DOSE: 1520.57 mGy.cm HISTORY: 60 years-old Male with PE. Acute shortness of breath TECHNIQUE: Multiple CTA images of the chest were obtained after the intravenous administration of 116 ml Optiray 320. Coronal and sagittal MIPS were obtained from the axial data set and were submitted for review. All measurements were obtained according to NASCET criteria. A dose lowering technique w as utilized adhering to the principles of ALARA. COMPARISON: PET CT 12/14/2015, chest CT 11/26/2015, CT abdomen pelvis 12/24/2016 FINDINGS: CTA: Heart is upper limits of normal in size. There is no pericardial effusion. Mild to moderate coronary artery calcifications. There is no thoracic aortic aneurysm or dissection. There is patency of the im aged great vessels. Main pulmonary artery is dilated measuring 3.9 cm which may reflect underlying pu lmonary artery hypertension. No filling defects identified to suggest thromboembolic disease. CT CHEST: No discrete thyroid nodule. There is no adenopathy identified. No pneumothorax or pleural effusion. M ild linear subsegmental areas of scarring/atelectasis in the lung bases. There are 2 subadjacent area s of nodular consolidation involving the basal right lower lobe on image 54 both of which measure 1.2 cm. 8 mm groundglass nodule of the basal right lower lobe, image 61. 7 mm solid nodule of the basal right lower lobe, image 79. 1.5 cm groundglass nodule of the superior segment right lower lobe, image 125 contains a 3 mm central solid nodule. 4 mm solid nodule of the right lower lobe, image 128. Efrain tional tiny subcentimeter groundglass densities of the right middle lobe with 9 mm groundglass densit y of the superior segment left lower lobe, image 129. All of these findings are new from 2016. The ce ntral airways are patent. No pneumoperitoneum. No acute process of the imaged upper abdomen. Unremarkable soft tissues. Severe degeneration of the right sternoclavicular joint with air in the joint space, likely on a degenerativ e basis. IMPRESSION: 1. No pulmonary emboli. 2. Scattered groundglass and solid pulmonary nodular opacities as above including two subadjacent 1.2 cm nodules of the basal right lower lobe and a subsolid 1.5 cm nodule of the superior segment right lower lobe. These findings are new from the 2015 and 2016 comparisons and require a 3 month follow-up chest CT for further characterization. 3. No adenopathy or pleural effusion. ACT 112: Negative or not required by law. The above report was generated using voice recognition software. It may contain grammatical, syntax o r spelling errors. Electronically signed by: Niranjan Bhagat M.D. 02/19/2021 7:50 AM
--- NOTE | 2021-02-19 07:55 | XRay Report ---
SINGLE VIEW CHEST CLINICAL HISTORY: Atypical chest pain. FINDINGS: An AP, portable, upright chest radiograph is compared to study dated 12/24/2016. The examina tion is degraded by portable technique and apical lordotic positioning. The cardiomediastinal silhoue tte is unremarkable. There is bibasilar scarring/atelectasis. No airspace consolidation or large pleu ral effusion is identified. No pneumothorax is seen. The bony thorax is grossly intact. IMPRESSION: No acute cardiopulmonary abnormality. ACT 112: Negative or not required by law. Electronically signed by: Coleman Arambula M.D. 02/19/2021 7:53 AM
[2021-02-19] MEDS: INSULIN ASPART 100 UNITS/ML 3 ML PEN SC SCH ×5 (08:19→20:50)
[2021-02-19 08:24] LABS: Amphetamines+Metham, Urine Pos (Neg); Barbiturates, Urine Neg (Neg); Benzodiazepine, Urine Neg (Neg); Cocaine, Urine Neg (Neg); MDMA (Ecstacy), Urine Pos (Neg); Methadone, Urine Neg (Neg); Opiate, Urine Pos (Neg); Phencyclidine, Urine Neg (Neg)
[2021-02-19] MEDS ORDERED: ENOXAPARIN INJ 40 MG/0.4 ML SYR SQ SCH (09:00)
[2021-02-19] MEDS ORDERED: INSULIN GLARGINE SOLOSTAR 100 UNITS/ML 3 ML PEN SC SCH ×2 (09:00→21:00)
[2021-02-19] MEDS ORDERED: lisinopril 10 MG TAB PO SCH (09:00)
[2021-02-19] MEDS ORDERED: DOXYCYCLINE HYCLATE 100 MG CAP PO SCH (09:00)
--- NOTE | 2021-02-19 09:42 | CT Scan Report ---
CT SCAN OF THE LEFT HAND WITH IV CONTRAST CLINICAL HISTORY: Left hand swelling. Possible spider bite. COMPARISON STUDY: Radiographs of the left hand dated 02/18/2021. TECHNIQUE: Following the IV administration of 116 cc of Optiray 320, CT scan of the hand is performed from the wrist to the fingertips. Images are reviewed in the axial, sagittal, and coronal planes. IV contrast was administered without complication. The examination is degraded by suboptimal positionin g within the CT gantry. A dose lowering technique was utilized adhering to the principles of ALARA. FINDINGS: The skeletal structures are well mineralized. There is chronic posttraumatic deformity of t he fifth metacarpal. No acute fracture is identified. No bony erosion or periostitis is identified. T he joint spaces of the hand appear maintained. Minimal cystic degenerative change is noted in the car pal bones. No erosive disease is seen. There is mild subcutaneous soft tissue edema, likely represent ing cellulitis. No organized fluid collection is seen to suggest abscess. IMPRESSION: 1. No acute bony abnormality is identified. 2. Mild soft tissue tissue edema suggests cellulitis. 3. No organized fluid collection is seen to indicate abscess. ACT 112: Negative or not required by law. Dictated: 02/19/2021 8:28 AM Transcribed: 02/19/2021 9:39 AM Ana [id number] COURT_Funmi Electronically signed by: Coleman Arambula M.D. 02/19/2021 9:40 AM
--- NOTE | 2021-02-19 10:23 | Orthopedic Consultation ---
Date of Consultation February 19, 2021 Assessment & Plan (1) Cellulitis of finger of left hand: CT scan reviewed and showing no areas of abscesses. Diffuse swelling noted. Patient states that overall he is better now with his swelling and erythema as well as his pain control. He does not look like he is developing a tenosynovitis at this time. Plan for continued IV antibiotics, and elevation of the left hand on at least 2-3 pillows. No surgical intervention at this time. I will review the case with Dr. Eubanks who will see the patient today. We will continue to follow. History of Present Illness Reason for Consultation: Cellulitis left third finger Attending Physician: Kristin Franz, History of Present Illness 60-year-old male who was admitted for cellulitis of his left third finger last night. Patient states that they think he had a spider bite on his finger at one point in time a few days ago. He noticed that there was a small pustule just proximal to the nailbed of the third finger. At that point he ended up popping it and cleaning it up and thought nothing of it. Soon after the finger began to get red and swollen and [facility] [place] They gave him a shot of antibiotics with plans to return to be seen in the office a day or so later. He states that yesterday though the erythema and pain began to increase as did the swelling. Got to the point that he had severe pain and came to the emergency room. He was seen by the staff there and then admitted by the [facility] service for further care. We have been asked to see him for his left third finger cellulitis. Currently the patient is awake and alert. He states that his hand and fingers are feeling much better today. Not near as much pain as he had before he also states that his swelling has gone down in the dorsum of his hand. Allergies Allergy/AdvReac Type Severity Reaction Status Date / Time No Known Allergies Allergy Unverified 02/18/21 22:13 Home Medications Medication Instructions Recorded Confirmed Type No Known Home Medications 02/18/21 02/18/21 History Patient History Social History Smoking Status: Never smoker Hx Alcohol Use: No Hx Substance Use: Yes 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: Days (ago) 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 Other:: crystal meth - "last week" Beliefs That Will Affect Care: None Current Living Situation: Spouse and Family Feels Safe at Home: Yes Safety Concerns: Feels Safe At This Time Assistive Devices: None Review of Systems Review of Systems: All systems reviewed & are unremarkable except as noted in HPI & below Physical Exam Physical Exam: On examination of his left hand he has some residual mild swelling over the dorsum of the hand. Erythema does run up his arm at this time past the elbow. His third finger is moderately swollen and has decreased sensation. He has decreased flexion of the finger secondary to swelling. He has no pain with passive extension of the third finger. He has mild pain on attempted flexion of the finger. Cap refill is less than 2 seconds. The other fingers of the hand are not involved. No pain or erythema of the first, second, fourth, or fifth fingers. Passive flexion and extension of the fingers is within normal limits and shows no pain. He has good range of motion of his left wrist with no pain during range of motion. He has no pain in the left elbow with range of motion at this time. No overt pain on palpation of the palmar aspect of the hand or the dorsum of the hand. Results & Data ([facility]) Vital Signs (Past 12 Hours) Vital Signs Temp Pulse Pulse Resp BP BP Pulse Ox 02/19/21 08:00 37.1 C 94 H 18 179/102 H 96 02/19/21 07:17 88 02/19/21 04:42 37.4 C 96 H 17 135/77 97 02/19/21 03:51 36.9 C 99 H 15 172/101 H 93 02/19/21 00:45 37 C 87 90 15 176/104 H 97 02/19/21 00:00 85 22 169/102 H 97 02/18/21 23:52 86 20 97 02/18/21 23:47 86 18 180/102 H 95 02/18/21 22:44 108 H 18 187/108 H 96 Laboratory Results Laboratory Results WBC 9.02 K/uL (4.8-10.8) 02/19/21 04:45 RBC 4.55 M/uL (4.7-6.1) L 02/19/21 04:45 Hgb 13.8 g/dL (14.0-18.0) L 02/19/21 04:45 Hct 38.3 % (42-52) L 02/19/21 04:45 MCV 84.2 fL (80-100) 02/19/21 04:45 MCH 30.3 pg (25-34) 02/19/21 04:45 MCHC 36.0 g/dL (32-36) 02/19/21 04:45 RDW Std Deviation 38.6 fL (36.4-46.3) 02/19/21 04:45 RDW Coeff of [place] 12.8 % (11.5-14.5) 02/19/21 04:45 Plt Count 219 K/uL (130-400) 02/19/21 04:45 MPV 9.7 fL (7.4-10.4) 02/19/21 04:45 Immature Gran % (Auto) 0.2 % 02/19/21 04:45 Neut % (Auto) 73.0 % 02/19/21 04:45 Lymph % (Auto) 16.9 % 02/19/21 04:45 Otero % (Auto) 9.1 % 02/19/21 04:45 Eos % (Auto) 0.7 % 02/19/21 04:45 Baso % (Auto) 0.1 % 02/19/21 04:45 Neut # (Auto) 6.59 K/uL (1.4-6.5) H 02/19/21 04:45 Lymph # (Auto) 1.52 K/uL (1.2-3.4) 02/19/21 04:45 Otero # (Auto) 0.82 K/uL (0.11-0.59) H 02/19/21 04:45 Eos # (Auto) 0.06 K/uL (0-0.5) 02/19/21 04:45 Baso # (Auto) 0.01 K/uL (0-0.2) 02/19/21 04:45 Immature Gran # (Auto) 0.02 K/uL (0.00-0.02) 02/19/21 04:45 ESR 23 mm/hr (0-14) H 02/18/21 19:04 APTT 28.3 Seconds (21.0-31.0) 02/19/21 04:45 PTT Ratio 1.1 02/19/21 04:45 Sodium 131 mmol/L (136-145) L 02/19/21 04:45 Potassium 4.0 mmol/L (3.5-5.1) 02/19/21 04:45 Chloride 100 mmol/L (98-107) 02/19/21 04:45 Carbon Dioxide 26 mmol/L (21-32) 02/19/21 04:45 Anion Gap 5.0 (3-11) 02/19/21 04:45 BUN 13 mg/dl (7-18) 02/19/21 04:45 Creatinine 0.83 mg/dl (0.6-1.4) 02/19/21 04:45 Est Cr Clr Drug Dosing 107.5 ml/min 02/19/21 04:45 Est GFR ( Amer) 111.6 02/19/21 04:45 Est GFR (Non-Af Amer) 96.3 02/19/21 04:45 BUN/Creatinine Ratio 16.0 (10-20) 02/19/21 04:45 Glucose 310 mg/dl (70-99) H* 02/19/21 04:45 POC Glucose 282 mg/dl (70-99) H 02/19/21 07:49 Estimat Average Glucose 335 mg/dl 02/19/21 04:45 Hemoglobin A1c 13.3 % (4.5-5.6) H 02/19/21 04:45 Uric Acid 3.6 mg/dl (2.6-7.2) 02/18/21 19:04 Calcium 8.4 mg/dl (8.5-10.1) L 02/19/21 04:45 Magnesium 2.1 mg/dl (1.8-2.4) 02/18/21 19:04 Magnesium Cancelled 02/18/21 19:04 Total Bilirubin 0.3 mg/dl (0.2-1) 02/18/21 19:04 AST 10 U/L (15-37) L 02/18/21 19:04 ALT 41 U/L (12-78) 02/18/21 19:04 Alkaline Phosphatase 111 U/L (45-117) 02/18/21 19:04 Troponin I < 0.015 ng/ml (0-0.045) 02/19/21 04:45 C-Reactive Protein 4.30 mg/dl (0-0.29) H 02/18/21 19:04 Total Protein 7.8 gm/dl (6.4-8.2) 02/18/21 19:04 Albumin 3.3 gm/dl (3.4-5.0) L 02/18/21 19:04 Globulin 4.5 gm/dl (2.5-4.0) H 02/18/21 19:04 Albumin/Globulin Ratio 0.7 (0.9-2) L 02/18/21 19:04 Lipase 90 U/L (73-393) 02/19/21 04:45 Beta-Hydroxybutyric Acd 1.04 mg/dl (0.2-2.81) 02/19/21 04:45 Procalcitonin < 0.05 ng/ml (0-0.5) 02/18/21 19:04 Urine Color Yellow 02/19/21 07:40 Urine Appearance Clear (Clear) 02/19/21 07:40 Urine pH 6.0 (4.5-7.5) 02/19/21 07:40 Ur Specific [place] 1.043 (1.000-1.030) H 02/19/21 07:40 Urine Protein 2+ (Negative) H 02/19/21 07:40 Urine Glucose (UA) 3+ (Negative) H 02/19/21 07:40 Urine Ketones Negative (Negative) 02/19/21 07:40 Urine Blood 1+ (Negative) H 02/19/21 07:40 Urine Nitrite Negative (Negative) 02/19/21 07:40 Urine Bilirubin Negative (Negative) 02/19/21 07:40 Urine Urobilinogen Negative (Negative) 02/19/21 07:40 Ur Leukocyte Esterase Negative (Negative) 02/19/21 07:40 Urine WBC (Auto) 1-5 /hpf (0-5) 02/19/21 07:40 Urine RBC (Auto) 5-10 /hpf (0-4) H 02/19/21 07:40 U Hyaline Cast (Auto) 1-5 /lpf (0-5) 02/19/21 07:40 U Epithel Cells (Auto) 0-5 /lpf (0-5) 02/19/21 07:40 Urine Bacteria (Auto) Negative (Negative) 02/19/21 07:40 Urine Opiates Screen Pos (Neg) H 02/19/21 07:40 Ur Methadone, Qual Neg (Neg) 02/19/21 07:40 Urine Barbiturates Neg (Neg) 02/19/21 07:40 Ur Phencyclidine (PCP) Neg (Neg) 02/19/21 07:40 U Amphetamin/Meth Scrn Pos (Neg) H 02/19/21 07:40 MDMA (Ecstasy) Screen Pos (Neg) H 02/19/21 07:40 U Benzodiazepines Scrn Neg (Neg) 02/19/21 07:40 Ur Cocaine Metabolite Neg (Neg) 02/19/21 07:40 U Marijuana (THC) Screen Neg (Neg) 02/19/21 07:40 COVID-19 Eval Order [facility] at [facility] 02/18/21 19:58 SARS-CoV-2 (PCR) NEGATIVE (Negative) 02/18/21 19:58 Influenza Type A (PCR) Negative (Neg) 02/18/21 19:58 Influenza Type B (PCR) Negative (Neg) 02/18/21 19:58 RSV (RT-PCR) Negative (Neg) 02/18/21 19:58 Impressions . Diagnostic Findings atient: CE BARRERAAdmit Date: 02/19/21MR#: [id number]: [id number]Acct ID:[id number]: POX [address]Birth Date: [birth year]City Zip: [place], [place] [address]Scx: 60Location: 2NSex: MRoom/Bed: [id number] Phy: Kristin Franz, DODiagnosis: HTN URG, FINGER CELLULITISPri Phy: PCP,NOService Date: 02/19/21Fam Phy:Interpreting Phy: Coleman Arambula MDAdmit Phy: Aubrey Ocasio MD Ordering Phy: Aubrey Ocasio MD cc: ~ CT SCAN OF THE LEFT HAND WITH IV CONTRAST CLINICAL HISTORY: Left hand swelling. Possible spider bite. COMPARISON STUDY: Radiographs of the left hand dated 02/18/2021. TECHNIQUE: Following the IV administration of 116 cc of Optiray 320, CT scan of the hand is performed from the wrist to the fingertips. Images are reviewed in the axial, sagittal, and coronal planes. IV contrast was administered without complication. The examination is degraded by suboptimal positioning within the CT gantry. A dose lowering technique was utilized adhering to the principles of ALARA. FINDINGS: The skeletal structures are well mineralized. There is chronic posttraumatic deformity of the fifth metacarpal. No acute fracture is identified. No bony erosion or periostitis is identified. The joint spaces of the hand appear maintained. Minimal cystic degenerative change is noted in the carpal bones. No erosive disease is seen. There is mild subcutaneous soft tissue edema, likely representing cellulitis. No organized fluid collection is seen to suggest abscess. IMPRESSION: 1. No acute bony abnormality is identified. 2. Mild soft tissue tissue edema suggests cellulitis. 3. No organized fluid collection is seen to indicate abscess. ACT 112: Negative or not required by law.
[2021-02-19] MEDS: METOPROLOL TARTRATE 25 MG TAB PO SCH ×2 (10:58→20:50)
--- NOTE | 2021-02-19 12:15 | Communication Note ---
Date of Service: February 19, 2021 BP remains elevated. Metoprolol added. Full consult to follow .
[2021-02-19] MEDS ORDERED: VANCOMYCIN CONSULT ACTIVE SCH (12:40)
--- NOTE | 2021-02-19 13:53 | Hospitalist Progress Note ---
Date of Service February 19, 2021 Assessment & Plan (1) Cellulitis of dorsum of hand: In the setting of uncontrolled diabetes and erythema that is spreading proximally crossing multiple joints will broaden coverage from doxycycline to now include daptomycin and cefepime pending cultures and clinical improvement. Daptomycin is on board to cover as the initial cellulitis was purulent in nature. There is no current drainage at this time. Ortho was consulted and recommends continued current management with antibiotic therapy. Continue pain control efforts. (2) Asymptomatic hypertensive urgency: Pain is driving hypertension, additional pain medicine options were offered. The patient is not currently on anything for hypertension at home and was placed on lisinopril 20 mg daily which will be continued at this time. Continue monitoring BMP and giving additional antihypertensives as needed. Of note methamphetamine withdrawal may be contributing to elevated blood pressure also. (3) DMII (diabetes mellitus, type 2): Basal bolus insulin was started, hemoglobin A1c is greater than 13. Ideally patient should go out on Metformin and Lantus once nightly, if he is amenable to this at discharge. Discharge physician to consider close follow-up with [facility]. (4) Methamphetamine addiction: Monitor for signs of withdrawal over the next 24 to 48 hours. Utilize Ativan as needed anxiety. (5) DVT prophylaxis: Lovenox Full code Disposition-to home when cellulitis is improved and pain is controlled. 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 He is a very uncontrolled diabetic with a history of diagnosis several years ago and noncompliance with medications. He is known to use methamphetamines every other day. Repeat BP check by me at 1:53pm was 156/78, HR 80 Pain level is 8/10 Patient denies any fevers or chills Tolerating p.o. Seen by orthopedics. Review of Systems Review of Systems: All systems reviewed & are unremarkable except as noted in Subjective Physical Exam Physical Exam: CONSTITUTIONAL: WNWD, vitals as above, generally ill-appearing EYES: normal conjunctivae, no scleral icterus ENT: external ear and nose normal, oropharynx clear, MMM RESPIRATORY: clear to auscultation bilaterally, no crackles, rales or wheezes, normal respiratory effort CARDIOVASCULAR: regular rate and rhythm, S1 and 2 heard without murmurs, gallops or rubs, no JVD, no peripheral edema GASTROINTESTINAL: soft, nontender, nondistended, no guarding MUSCULOSKELETAL: strength 5/5 throughout, head is normocephalic and atraumatic SKIN: warm and dry, swelling of the third finger left hand with erythema and swelling spreading proximally and crossing dorsum of the wrist. Tender to touch and limited ROM of the wrist or fingers. NEUROLOGIC: CN 2-12 grossly intact, normal cognition, normal speech, no tremor PSYCHIATRIC: alert cooperative and oriented to person, place and time. Results & Data Results & Data ([facility]) Vital Signs (Past 12 Hours) Vital Signs Temp Pulse Pulse Resp BP Pulse Ox 02/19/21 11:12 37 C 92 H 18 194/107 H 98 02/19/21 08:00 37.1 C 94 H 18 179/102 H 96 02/19/21 07:17 88 02/19/21 04:42 37.4 C 96 H 17 135/77 97 02/19/21 03:51 36.9 C 99 H 15 172/101 H 93 Laboratory Results Short CBC 02/18/21 02/19/21 Range/Units 19:04 04:45 WBC 10.57 9.02 (4.8-10.8) K/uL Hgb 15.0 13.8 L (14.0-18.0) g/dL Hct 41.5 L 38.3 L (42-52) % Plt Count 226 219 (130-400) K/uL BMP 02/18/21 02/19/21 19:04 04:45 Sodium 133 L 131 L Potassium 4.0 4.0 Chloride 101 100 Carbon Dioxide 28 26 BUN 14 13 Creatinine 1.06 0.83 Glucose 298 H 310 H* Calcium 9.0 8.4 L Cardiac Enzymes 02/18/21 02/18/21 02/19/21 Range/Units 19:04 23:45 04:45 Troponin I < 0.015 < 0.015 < 0.015 (0-0.045) ng/ml Liver Function 02/18/21 Range/Units 19:04 Total Bilirubin 0.3 (0.2-1) mg/dl AST 10 L (15-37) U/L ALT 41 (12-78) U/L Alkaline Phosphatase 111 (45-117) U/L Albumin 3.3 L (3.4-5.0) gm/dl Urine 02/19/21 Range/Units 07:40 Urine Color Yellow Urine Appearance Clear (Clear) Urine pH 6.0 (4.5-7.5) Ur Specific [place] 1.043 H (1.000-1.030) Urine Protein 2+ H (Negative) Urine Glucose (UA) 3+ H (Negative) Medications Administered Current Inpatient Medications Acetaminophen (Acetaminophen 325 Mg Tab) 325 mg PO Q6H PRN PRN Reason: Mild Pain Stop: 03/20/21 20:29 Last Admin: 02/18/21 22:30 Dose: 325 mg Documented by: Aspirin (Aspirin 81 Mg Ectab) 81 mg PO QA SAMY Stop: 03/22/21 08:59 Dextrose (Dextrose 50% 50 Ml Syringe) 25 - 50 ml IV UD PRN; Protocol PRN Reason: Hypoglycemia Protocol Stop: 03/21/21 01:14 Glucagon (Glucagon For Inj 1 Mg Vial) 1 mg IM UD PRN; Protocol PRN Reason: Hypoglycemia Protocol Stop: 03/21/21 01:14 Glucose (Glucose 40% Gel 15 Gm Tube) 15 - 30 gm PO UD PRN; Protocol PRN Reason: Hypoglycemia Protocol Stop: 03/21/21 01:14 Glucose (Glucose 10 Tabs/Tube) 4 - 8 tabs PO UD PRN; Protocol PRN Reason: Hypoglycemia Protocol Stop: 03/21/21 01:14 Promethazine HCl 12.5 mg/ (Sodium Chloride) 50.5 mls @ 202 mls/hr IV Q6H PRN PRN Reason: Nausea And Vomiting Stop: 03/21/21 01:10 Lorazepam (Ativan) 0.25 mg in 0.5 mls @ 0.5 mls/min IV Q4H PRN PRN Reason: Anxiety Stop: 03/21/21 01:25 Cefepime HCl 2,000 mg/ Syringe 20 mls @ 5 mls/min IV Q8H SAMY; Protocol Stop: 02/26/21 12:59 Last Admin: 02/19/21 14:05 Dose: 5 mls/min Documented by: Vancomycin HCl 2,250 mg/ (Sodium Chloride) 545 mls @ 200 mls/hr IV TODAY@1800 ONE Stop: 02/19/21 20:43 Vancomycin HCl 1,500 mg/ (Sodium Chloride) 530 mls @ 200 mls/hr IV Q8H [facility] Stop: 02/25/21 23:59 Ibuprofen (Ibuprofen 800 Mg Tab) 800 mg PO TID PRN PRN Reason: pain/fever Stop: 03/21/21 13:53 Insulin Aspart (Insulin Aspart 100 Units/Ml 3 Ml Pen) 0 units SC ACHS [facility] Stop: 03/21/21 07:29 Last Admin: 02/19/21 11:56 Dose: 3 units Documented by: Insulin Glargine (Insulin Glargine Solostar 100 Units/Ml 3 Ml Pen) 20 units SC BID [facility] Stop: 03/21/21 20:59 Ketorolac Tromethamine (Ketorolac Tromethamine 15 Mg/Ml Vial) 15 mg IV Q8H PRN PRN Reason: Pain Stop: 02/24/21 13:53 Lisinopril (Lisinopril 20 Mg Tab) 20 mg PO QAM [facility] Stop: 03/22/21 08:59 Metoprolol Tartrate (Metoprolol Tartrate 25 Mg Tab) 25 mg PO BID [facility] Stop: 03/21/21 10:14 Last Admin: 02/19/21 10:58 Dose: 25 mg Documented by: Miscellaneous (Carbohydrates For Hypoglycemia ) 15 - 30 gm PO UD PRN PRN Reason: Hypoglycemia Treatment Stop: 03/21/21 01:14 Miscellaneous Information (Vancomycin Consult Active) 1 ea N/A UD [facility] Stop: 03/21/21 12:39 Morphine Sulfate (Morphine Sulfate 4 Mg/Ml 1 Ml Carp\Vial) 4 mg IV Q4H PRN PRN Reason: Pain Stop: 03/04/21 20:29 Last Admin: 02/19/21 02:56 Dose: 4 mg Documented by: Tramadol HCl (Tramadol Hcl 50 Mg Tablet) 25 - 50 mg PO Q4H PRN PRN Reason: Pain Stop: 03/20/21 20:29 Last Admin: 02/18/21 22:31 Dose: 50 mg Documented by:
[2021-02-19] MEDS ORDERED: MoRPHine SULFATE 4 MG/ML 1 ML CARP\\VIAL IV STA (13:54)
[2021-02-19] MEDS ORDERED: KETOROLAC TROMETHAMINE 15 MG/ML VIAL IV PRN (13:54)
[2021-02-19] MEDS ORDERED: IBUPROFEN 800 MG TAB PO PRN (13:54)
--- NOTE | 2021-02-19 14:03 | Pharmacy Report ---
Pharmacy Abx Dose Short Note - Date of Service February 19, 2021 - Assessment & Plan Assessment 60 year old M receiving IV Vancomycin and Cefepime for treatment of left hand cellulitis that is spreading, questionable purulent discharge, possible septic arthritis in patient with DM. Patient received the following in the ER yesterday: Daptomycin 400mg IV x 1 at 2000 Zosyn 4.5g IV x 1 at 1900 Doxycycline 100mg IV at 2133 Patient continued on Doxycycline 100mg PO BID Blood cultures pending. Day # 2 of antimicrobial therapy. Plan Vancomycin * Patient meets criteria for vancomycin AUC dosing nomogram * AUC/PHILLIP is the preferred PK/PD target for vancomycin Target AUC/PHILLIP = 400-600 AUC guided dosing is effective and associated with decreased risk of nephrotoxicity Vancomycin 2250mg IV x1 dose at 1800, then 1500mg IV Q8H * Trough level ordered for: 02/21/21 prior to 0200 dose Cefepime 2g IV Q8H for cellulitis and CrCl > 60ml/min Pharmacy will continue to follow and will adjust dose/frequency as necessary. Thank you.
[2021-02-19] MEDS: CEFEPIME 2,000 MG in SYRINGE 0 ML IV SCH ×2 (14:05→20:49)
--- NOTE | 2021-02-19 14:26 | Electrocardiogram Report ---
Test Reason : Blood Pressure : / mmHG Vent. Rate : 087 BPM Atrial Rate : 087 BPM P-R Int : 170 ms QRS Dur : 094 ms QT Int : 350 ms P-R-T Axes : 018 010 024 degrees QTc Int : 421 ms Poor data quality, interpretation may be adversely affected Normal sinus rhythm Normal ECG When compared with ECG of 24-DEC-2016 12:43, Prior tracing has arm lead reversersal Confirmed by Rodolfo Mensah ([id number]) on 02/19/2021 2:25:51 PM Referred By: REFERRED SELF Confirmed By:Rodolfo Mensah
--- NOTE | 2021-02-19 14:58 | Electrocardiogram Report ---
Test Reason : Blood Pressure : / mmHG Vent. Rate : 101 BPM Atrial Rate : 101 BPM P-R Int : 190 ms QRS Dur : 094 ms QT Int : 334 ms P-R-T Axes : 040 008 014 degrees QTc Int : 433 ms Sinus tachycardia Otherwise normal ECG When compared with ECG of 18-FEB-2021 19:10, (unconfirmed) No significant change was found Confirmed by Rodolfo Mensah ([id number]) on 02/19/2021 2:58:09 PM Referred By: REFERRED SELF Confirmed By:Rodolfo Mensah
--- NOTE | 2021-02-19 16:30 | Electrocardiogram Report ---
Test Reason : Blood Pressure : / mmHG Vent. Rate : 090 BPM Atrial Rate : 090 BPM P-R Int : 178 ms QRS Dur : 102 ms QT Int : 348 ms P-R-T Axes : 039 015 037 degrees QTc Int : 425 ms Normal sinus rhythm Normal ECG When compared with ECG of 18-FEB-2021 23:24, (unconfirmed) No significant change was found Confirmed by Rodolfo Mensah ([id number]) on 02/19/2021 4:29:57 PM Referred By: REFERRED SELF Confirmed By:Rodolfo Mensah
[2021-02-19] MEDS ORDERED: VANCOMYCIN HCL 2,250 MG in SODIUM CHLORIDE 0.9% 500 ML IV ONE (18:00)
--- NOTE | 2021-02-19 18:56 | Cardiology Consultation ---
Date of Consultation February 19, 2021 Assessment & Plan (1) Hypertensive urgency: As noted, patient was previously on lisinopril/HCTZ, 40/25 mg daily. Currently on lisinopril 20 mg daily, metoprolol tartrate 25 mg twice daily. Titrate as necessary. Anticipate blood pressure will improve with treatment of cellulitis, and initiating medications. (2) Chest pain: Significant risk factors, age, male gender, diabetes, hypertension, past dyslipidemia. No chest pain at present. Troponin negative x3. Serial EKG tracings without ST depression. Normal resting wall motion. Continue with blood pressure control and risk factor modification. Likely proceed with outpatient stress echocardiogram after cellulitis resolves. (3) Dyslipidemia: Check lipid panel tomorrow. Likely resume atorvastatin. Treatment of cellulitis per primary team and orthopedics. DVT prophylaxis: Patient is ambulatory. Consider adding pharmacologic prophylaxis depending upon length of hospital stay. History of Present Illness Attending Physician: Kristin Franz, History of Present Illness Rodolfo Saldana is a 60-year-old male seen in cardiology consultation per the request of Dr. Guzman for the evaluation of chest discomfort and hypertension. The patient has a previous history of dyslipidemia and hypertension. He has followed recently with primary care and is off of his medications. Per review of previous prescriptions, in 2018 he had been prescribed lisinopril hydrochlorothiazide 20/12.5 two tablets by mouth daily. He most recently been prescribed atorvastatin 40 mg daily in 2018. He has not been taking his diabetes medications, and his hemoglobin A1c as measured yesterday was 12.8%. He initially presented as an outpatient on 02/18/2021 with 3 to 4 days of severe left second finger swelling and pain radiating to his arm. He has a wound at the distal portion of his finger at the level of the nailbed which is the likely source. He has been afebrile while hospitalized but notes vague subjective fever-like symptoms at home. His blood pressure at the outpatient clinic yesterday was 210/100. Blood pressure on arrival here was 183/109, and he has had persistent elevations throughout the day today. Lisinopril 20 mg was reinitiated today, and I had initiated metoprolol tartrate earlier today as well. In the chest pain coordinator hours this morning, the patient reported transient chest discomfort. He states that this has resolved with relaxing today, and with eating. He had no concerns at the time of my assessment other than his swollen finger/hand. PAST MEDICAL HISTORY Hypertension Dyslipidemia Type 2 diabetes mellitus FAMILY HISTORY Father at the age of 64 due to stomach cancer Brother with history of possible circulation problem in his neck per patient's description. History of coronary disease in his grandfather Allergies Allergy/AdvReac Type Severity Reaction Status Date / Time No Known Allergies Allergy Unverified 02/18/21 22:13 Home Medications Medication Instructions Recorded Confirmed Type No Known Home Medications 02/18/21 02/18/21 History Patient History Social History Smoking Status: Never smoker Hx Alcohol Use: No Hx Substance Use: Yes 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: Days (ago) 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 Other:: crystal meth - "last week" Beliefs That Will Affect Care: None Current Living Situation: Spouse and Family Feels Safe at Home: Yes Safety Concerns: Feels Safe At This Time Assistive Devices: None Review of Systems Review of Systems: All systems reviewed & are unremarkable except as noted in HPI & below Physical Exam Physical Exam: Temp Pulse Resp BP Pulse Ox 36.6 C 80 18 164/90 H 94 02/19/21 15:23 02/19/21 17:26 02/19/21 15:23 02/19/21 15:23 02/19/21 15:23 Respiratory: normal respiratory effort, lungs clear to auscultation Cardiovascular: RRR, no murmur, no edema Gastrointestinal (Abdomen): normal bowel sounds, soft, nontender, no hepatosplenomegaly Skin: Swollen left second finger, with erythema extending to his hand and mild streaks of his forearm Neurologic: PERRL, EOMI, accommodation nl, no face palsy, no dysarthria Results & Data ([facility]) Vital Signs (Past 12 Hours) Vital Signs Temp Pulse Pulse Resp BP Pulse Ox 02/19/21 17:26 80 02/19/21 15:23 36.6 C 79 18 164/90 H 94 02/19/21 14:03 80 154/78 H 02/19/21 11:12 37 C 92 H 18 194/107 H 98 02/19/21 08:00 37.1 C 94 H 18 179/102 H 96 02/19/21 07:17 88 Laboratory Results Cardiac Enzymes 0402/18/21 02/19/21 Range/Units 19:04 23:45 04:45 AST 10 L (15-37) U/L Troponin I < 0.015 < 0.015 < 0.015 (0-0.045) ng/ml Coagulation 02/18/21 02/19/21 Range/Units 23:45 04:45 APTT 27.9 28.3 (21.0-31.0) Seconds CBC 02/18/21 02/19/21 Range/Units 19:04 04:45 WBC 10.57 9.02 (4.8-10.8) K/uL RBC 4.88 4.55 L (4.7-6.1) M/uL Hgb 15.0 13.8 L (14.0-18.0) g/dL Hct 41.5 L 38.3 L (42-52) % Plt Count 226 219 (130-400) K/uL Neut # (Auto) 8.05 H 6.59 H (1.4-6.5) K/uL Lymph # (Auto) 1.45 1.52 (1.2-3.4) K/uL [place] # (Auto) 0.93 H 0.82 H (0.11-0.59) K/uL Eos # (Auto) 0.11 0.06 (0-0.5) K/uL Baso # (Auto) 0.01 0.01 (0-0.2) K/uL Comprehensive Metabolic Panel 02/18/21 02/19/21 Range/Units 19:04 04:45 Sodium 133 L 131 L (136-145) mmol/L Potassium 4.0 4.0 (3.5-5.1) mmol/L Chloride 101 100 (98-107) mmol/L Carbon Dioxide 28 26 (21-32) mmol/L BUN 14 13 (7-18) mg/dl Creatinine 1.06 0.83 (0.6-1.4) mg/dl Glucose 298 H 310 H* (70-99) mg/dl Calcium 9.0 8.4 L (8.5-10.1) mg/dl AST 10 L (15-37) U/L ALT 41 (12-78) U/L Alkaline Phosphatase 111 (45-117) U/L Total Protein 7.8 (6.4-8.2) gm/dl Albumin 3.3 L (3.4-5.0) gm/dl Intake and Output 02/19/21 02/19/21 02/19/21 06:59 14:59 22:59 Intake Total 354 / 474 1275 / 1275 Output Total 425 / 425 550 / 550 Balance -71 / 49 725 / 725 Intake: IV 354 / 474 1000 / 1000 Vibramycin 100 mg In D5 100 ml 110 / 110 @ 50 mls/hr IV NOW [facility] Rx#: [id number] Nss 1000ML 1,000 ml @ 50 mls/hr 244 / 244 1000 / 1000 IV .Q[facility] Rx#:[id number] Oral 275 / 275 Output: Urine 425 / 425 550 / 550 Other: Other Intake Source npo Weight 92.2 kg 92.2 kg Weight Measurement Method Standing Scale Patient Weight 02/20/21 06:59 Weight 92.2 kg Diagnostic Findings EKG tracings x3 revealed sinus rhythm without ST changes. Echocardiogram revealed mild concentric left ventricular hypertrophy, normal LV wall motion, LVEF 60 to 65%. No significant valvular abnormality
[2021-02-19] MEDS ORDERED: DAPTOmycin 300 MG in SYRINGE 0 ML IV SCH (20:00)
[2021-02-19] MEDS: INSULIN GLARGINE SOLOSTAR 100 UNITS/ML 3 ML PEN SC SCH (20:49)
[2021-02-20] MEDS ORDERED: lisinopril 40 MG TAB PO SCH (01:15)
[2021-02-20] MEDS ORDERED: VANCOMYCIN TROUGH ONE (01:30)
[2021-02-20] MEDS: VANCOMYCIN HCL 1,500 MG in SODIUM CHLORIDE 0.9% 500 ML IV SCH ×3 (01:33→17:16)
[2021-02-20 02:21] LABS: Hematocrit (blood only) 41.4 % (42-52); Hemoglobin 14.7 g/dL (14.0-18.0); Mean Corpuscular Hemoglobin 30.2 pg (25-34); Mean Corpuscular Hgb Conc 35.5 g/dL (32-36); Mean Corpuscular Volume 85.2 fL (80-100); Platelet Count 251 K/uL (130-400); RDW Coefficient of Variation 13.2 % (11.5-14.5); RDW Standard Deviation 41.1 fL (36.4-46.3); Red Blood Count 4.86 M/uL (4.7-6.1); White Blood Count 10.49 K/uL (4.8-10.8)
[2021-02-20 02:40] LABS: Albumin Level 2.7 gm/dl (3.4-5.0); BUN Creatinine Ratio 22.1 (10-20); Calcium 9.1 mg/dl (8.5-10.1); Creatinine Clr Calc Pharmacy 110.1 ml/min; Est GFR (African American) 112.7; Est GFR (Non-African American) 97.3; Magnesium 2.2 mg/dl (1.8-2.4)
[2021-02-20 02:45] LABS: Albumin Globulin Ratio 0.6 (0.9-2); Bilirubin,Total 0.5 mg/dl (0.2-1); C Reactive Protein 11.6 mg/dl (0-0.29); Globulin 4.3 gm/dl (2.5-4.0)
[2021-02-20] MEDS: CEFEPIME 2,000 MG in SYRINGE 0 ML IV SCH ×2 (05:58→12:34)
[2021-02-20] MEDS: INSULIN ASPART 100 UNITS/ML 3 ML PEN SC SCH ×3 (08:18→17:15)
[2021-02-20] MEDS: METOPROLOL TARTRATE 25 MG TAB PO SCH (08:18)
[2021-02-20] MEDS: INSULIN GLARGINE SOLOSTAR 100 UNITS/ML 3 ML PEN SC SCH (08:18)
[2021-02-20] MEDS ORDERED: ASPIRIN 81 MG ECTAB PO SCH (09:00)
[2021-02-20] MEDS ORDERED: lisinopril 20 MG TAB PO SCH (09:00)
[2021-02-20] MEDS ORDERED: CEFEPIME CONSULT ACTIVE PRN (09:08)
--- NOTE | 2021-02-20 09:34 | Hospitalist Progress Note ---
Date of Service February 20, 2021 Assessment & Plan (1) Cellulitis of dorsum of hand: In the setting of uncontrolled diabetes and erythema that is spreading proximally crossing multiple joints will broaden coverage from doxycycline to now include daptomycin and cefepime pending cultures and clinical improvement. Daptomycin is on board to cover as the initial cellulitis was purulent in nature. There is no current drainage at this time. Ortho was consulted and recommends continued current management with antibiotic therapy. Continue pain control efforts. Some improvement today, cont to monitor on IV antibiotics. (2) Asymptomatic hypertensive urgency: Pain is driving hypertension, additional pain medicine options were offered. Of note methamphetamine withdrawal may be contributing to elevated blood pressure, also. Lisinopril increased to 40mg PO daily and HCTZ 12.5mg PO daily was added this morning with good result. The patient later left AMA and these medications were sent to his outpatient pharmacy. Recommend repeat BMP with primary care in 2 week time. (3) DMII (diabetes mellitus, type 2): Basal bolus insulin was started, hemoglobin A1c is greater than 13. Ideally patient should go out on Metformin and Lantus once nightly, however, he left AMA overnight and we are unable to do this. He will need close PCP follow- up with consideration for some initial regimen as listed. (4) Transaminitis: Initial work-up with right upper quadrant ultrasound reveals prior cholecystectomy with a normal liver. This may be related to recent meth amphetamine use. Close follow-up as outpatient is recommended. Will trend (5) Methamphetamine addiction: No overt signs of withdrawal. Ativan PRN (6) DVT prophylaxis: Lovenox Full code Disposition-to home when cellulitis is improved and pain is controlled. Kristin Franz DO [facility] Hospitalist Admission and Anticipated Discharge Date Admission Date: February 19, 2021 Subjective 60-year-old man, myrna, presents with nontraumatic recently purulent cellulitis of the finger spreading into the dorsum of the hand and up into the elbow. He is a very uncontrolled diabetic with a history of diagnosis several years ago and noncompliance with medications. He is known to use methamphetamines every other day. BP elevated this morning and lisinopril was increased to 40mg PO daily overnight HCTZ was added this morning and resulting BP was within the normal range in the afternoon. Pain is significant however patient reports he is trying to avoid opiates. No pain meds given overnight Afebrile Tolerating PO Review of Systems Review of Systems: All systems reviewed & are unremarkable except as noted in Subjective Physical Exam Physical Exam: CONSTITUTIONAL: WNWD, vitals as above, generally NAD EYES: normal conjunctivae, no scleral icterus ENT: external ear and nose normal, oropharynx clear, MMM RESPIRATORY: clear to auscultation bilaterally, no crackles, rales or wheezes, normal respiratory effort CARDIOVASCULAR: regular rate and rhythm, S1 and 2 heard without murmurs, gallops or rubs, no JVD, no peripheral edema GASTROINTESTINAL: soft, nontender, nondistended, no guarding MUSCULOSKELETAL: strength 5/5 throughout, head is normocephalic and atraumatic SKIN: warm and dry, swelling of the third finger left hand with erythema and swelling spreading proximally and crossing dorsum of the wrist-somewhat improved but still significant. Tender to touch and limited ROM of the wrist or fingers- not much improved today. NEUROLOGIC: CN 2-12 grossly intact, normal cognition, normal speech, no tremor PSYCHIATRIC: alert cooperative and oriented to person, place and time. Results & Data Results & Data ([facility]) Vital Signs (Past 12 Hours) Vital Signs Temp Pulse Pulse Resp BP Pulse Ox 02/20/21 09:19 77 181/91 H 02/20/21 07:30 73 02/20/21 07:07 36.8 C 80 18 181/84 H 97 02/20/21 04:00 37.0 C 72 18 174/97 H 96 02/20/21 03:26 78 02/20/21 01:05 77 188/103 H 02/19/21 23:10 37.2 C 78 17 190/97 H 96 Laboratory Results Short CBC 02/20/21 Range/Units 01:49 WBC 10.49 (4.8-10.8) K/uL Hgb 14.7 (14.0-18.0) g/dL Hct 41.4 L (42-52) % Plt Count 251 (130-400) K/uL BMP 02/20/21 01:44 Sodium 137 Potassium 4.0 Chloride 106 Carbon Dioxide 26 BUN 18 Creatinine 0.81 Glucose 182 H Calcium 9.1 Liver Function 02/20/21 Range/Units 01:44 Total Bilirubin 0.5 (0.2-1) mg/dl AST 101 H (15-37) U/L ALT 358 H (12-78) U/L Alkaline Phosphatase 269 H D (45-117) U/L Albumin 2.7 L (3.4-5.0) gm/dl Medications Administered Current Inpatient Medications Acetaminophen (Acetaminophen 325 Mg Tab) 325 mg PO Q6H PRN PRN Reason: Mild Pain Stop: 03/20/21 20:29 Last Admin: 02/18/21 22:30 Dose: 325 mg Documented by: Aspirin (Aspirin 81 Mg Ectab) 81 mg PO QAM SAMY Stop: 03/22/21 08:59 Last Admin: 02/20/21 08:19 Dose: 81 mg Documented by: Dextrose (Dextrose 50% 50 Ml Syringe) 25 - 50 ml IV UD PRN; Protocol PRN Reason: Hypoglycemia Protocol Stop: 03/21/21 01:14 Enoxaparin Sodium (Enoxaparin Inj 40 Mg/0.4 Ml Syr) 40 mg SQ HS SAMY Stop: 03/22/21 20:59 Glucagon (Glucagon For Inj 1 Mg Vial) 1 mg IM UD PRN; Protocol PRN Reason: Hypoglycemia Protocol Stop: 03/21/21 01:14 Glucose (Glucose 40% Gel 15 Gm Tube) 15 - 30 gm PO UD PRN; Protocol PRN Reason: Hypoglycemia Protocol Stop: 03/21/21 01:14 Glucose (Glucose 10 Tabs/Tube) 4 - 8 tabs PO UD PRN; Protocol PRN Reason: Hypoglycemia Protocol Stop: 03/21/21 01:14 Hydrochlorothiazide (Hydrochlorothiazide 25 Mg Tab) 12.5 mg PO QAM [facility] Stop: 03/22/21 09:44 Hydrochlorothiazide (Hydrochlorothiazide 25 Mg Tab) 12.5 mg PO NOW [facility] Stop: 02/20/21 09:32 Promethazine HCl 12.5 mg/ (Sodium Chloride) 50.5 mls @ 202 mls/hr IV Q6H PRN PRN Reason: Nausea And Vomiting Stop: 03/21/21 01:10 Lorazepam (Ativan) 0.25 mg in 0.5 mls @ 0.5 mls/min IV Q4H PRN PRN Reason: Anxiety Stop: 03/21/21 01:25 Cefepime HCl 2,000 mg/ Syringe 20 mls @ 5 mls/min IV Q8H SAMY; Protocol Stop: 02/26/21 12:59 Last Admin: 02/20/21 05:58 Dose: 5 mls/min Documented by: Vancomycin HCl 1,500 mg/ (Sodium Chloride) 530 mls @ 200 mls/hr IV Q8H SAMY Stop: 02/25/21 23:59 Last Infusion: 02/20/21 04:15 Dose: Infused Documented by: Ibuprofen (Ibuprofen 800 Mg Tab) 800 mg PO TID PRN PRN Reason: pain/fever Stop: 03/21/21 13:53 Insulin Aspart (Insulin Aspart 100 Units/Ml 3 Ml Pen) 0 units SC ACHS SAMY Stop: 03/21/21 07:29 Last Admin: 02/20/21 08:18 Dose: 12 units Documented by: Insulin Glargine (Insulin Glargine Solostar 100 Units/Ml 3 Ml Pen) 20 units SC BID SAMY Stop: 03/21/21 20:59 Last Admin: 02/20/21 08:18 Dose: 20 units Documented by: Ketorolac Tromethamine (Ketorolac Tromethamine 15 Mg/Ml Vial) 15 mg IV Q8H PRN PRN Reason: Pain Stop: 02/24/21 13:53 Lisinopril (Lisinopril 40 Mg Tab) 40 mg PO QAM SAMY Stop: 03/22/21 01:14 Last Admin: 02/20/21 01:33 Dose: 40 mg Documented by: Metoprolol Tartrate (Metoprolol Tartrate 25 Mg Tab) 25 mg PO BID [facility] Stop: 03/21/21 10:14 Last Admin: 02/20/21 08:18 Dose: 25 mg Documented by: Miscellaneous (Carbohydrates For Hypoglycemia ) 15 - 30 gm PO UD PRN PRN Reason: Hypoglycemia Treatment Stop: 03/21/21 01:14 Miscellaneous Information (Vancomycin Consult Active) 1 ea N/A UD SAMY Stop: 03/21/21 12:39 Miscellaneous Information (Cefepime Consult Active) 1 ea N/A UD PRN PRN Reason: Consult Stop: 03/22/21 09:07 Morphine Sulfate (Morphine Sulfate 4 Mg/Ml 1 Ml Carp\Vial) 4 mg IV Q4H PRN PRN Reason: Pain Stop: 03/04/21 20:29 Last Admin: 02/19/21 02:56 Dose: 4 mg Documented by: Tramadol HCl (Tramadol Hcl 50 Mg Tablet) 25 - 50 mg PO Q4H PRN PRN Reason: Pain Stop: 03/20/21 20:29 Last Admin: 02/18/21 22:31 Dose: 50 mg Documented by:
--- NOTE | 2021-02-20 09:43 | Orthopedic Progress Note ---
Date of Service February 20, 2021 Assessment & Plan (1) Cellulitis of finger of left hand: Left hand/middle finger cellulitis History drug abuse Uncontrolled DM Continue DVT prophylaxis Continue Abx and monitor cultures continue to appreciate medicine input Admission and Anticipated Discharge Date Admission Date: February 19, 2021 Subjective patient laying in bed with no concerns this am. He notes the hand/finger feels better but still having pain. Physical Exam Physical Exam: Erythema and diffuse swelling to left middle finger with tenderness to area DIP joint. Cellulitis to just proximal to MP joint, which he notes is improved. No tenderness to flexor tendons. Able to extend digits with minimal pain. Flexion of the digits causes some slight increased pain. NVI Results & Data ([facility]) Vital Signs (Past 12 Hours) Vital Signs Temp Pulse Pulse Resp BP Pulse Ox 02/20/21 09:19 77 181/91 H 02/20/21 07:30 73 02/20/21 07:07 36.8 C 80 18 181/84 H 97 02/20/21 04:00 37.0 C 72 18 174/97 H 96 02/20/21 03:26 78 02/20/21 01:05 77 188/103 H 02/19/21 23:10 37.2 C 78 17 190/97 H 96
[2021-02-20] MEDS ORDERED: hydroCHLOROthiazide 25 MG TAB PO ONE (10:00)
--- NOTE | 2021-02-20 12:47 | Ultrasound Report ---
ABDOMINAL ULTRASOUND, RIGHT UPPER QUADRANT HISTORY: elevated LFTs, ALP, h/o meth use. COMPARISON: Abdomen and pelvis CT 12/24/2016. FINDINGS: Pancreas: The pancreatic tail is obscured by overlying bowel gas. The remaining portions of the pancr eas are within normal limits. Liver: Unremarkable. Gallbladder: The gallbladder is surgically absent. CBD: 5 mm. Right kidney: No hydronephrosis. IMPRESSION: 1. Prior cholecystectomy. 2. Normal liver. ACT 112: Negative or not required by law. Electronically signed by: Marvin Amaya M.D. 02/20/2021 12:45 PM
--- NOTE | 2021-02-20 15:17 | Cardiology Progress Note ---
Date of Service February 20, 2021 Assessment & Plan (1) Hypertensive urgency: Continue lisinopril, hydrochlorothiazide, and metoprolol as ordered. Anticipate blood pressure will improve with treatment of cellulitis/pain control. (2) Chest pain: Atypical with risk factors including diabetes, hypertension, past dyslipidemia. ECG without ischemic changes. Troponin undetectable. No regional wall motion abnormalities per echocardiogram. Outpatient stress echocardiogram after cellulitis resolves. (3) Dyslipidemia: Statin indicated, however, ALT markedly elevated. Recommend repeat lab testing and further evaluation per internal medicine prior to initiating statin therapy. Admission and Anticipated Discharge Date Admission Date: February 19, 2021 Subjective Patient seen and examined at the bedside. Denies chest pain or shortness of breath. Left hand discomfort improving. Blood pressure trending downward. Tolerating beta-luisa and SHAKA inhibitor therapy. Renal function remained stable. Denies palpitations, lightheadedness, or dizziness. Telemetry demonstrates sinus rhythm with a heart rate ranging from 60-70 bpm. No arrhythmias recorded. Review of Systems Review of Systems: All systems reviewed & are unremarkable except as noted in Subjective Physical Exam Constitutional: well developed and well nourished; no acute distress Respiratory: no respiratory distress and no labored breathing Auscultation: lungs clear to auscultation bilaterally; no crackles, no rales, no rhonchi and no wheezes Cardiovascular: Rate/Rhythm: regular rate and regular rhythm Heart Sounds: normal S1 and normal S2; no gallop, no murmur and no cardiac rub Vessels: no JVD Extremities: no edema Gastrointestinal (Abdomen): Inspection/Auscultation: normal bowel sounds; abdomen not distended Percussion/Palpation: abdomen soft; abdomen nontender, no guarding and abdomen not rigid Neurologic: CN's II-XI intact bilaterally; no focal motor deficits Motor/Sensory: no tremor Psychiatric: A+Ox3, euthymic affect Results & Data ([facility]) Vital Signs (Past 12 Hours) Vital Signs Temp Pulse Pulse Resp BP BP Pulse Ox 02/20/21 12:11 36.8 C 68 20 147/84 H 97 02/20/21 09:19 77 181/91 H 02/20/21 07:30 73 02/20/21 07:07 36.8 C 80 18 181/84 H 97 02/20/21 04:00 37.0 C 72 18 174/97 H 96 02/20/21 03:26 78
[2021-02-20] MEDS ORDERED: ENOXAPARIN INJ 40 MG/0.4 ML SYR SQ SCH (21:00)
--- NOTE | 2021-02-20 23:18 | Discharge Summary ---
Date of Service February 20, 2021 Admission HPI Per Admitting Provider History obtained from patient, family, and records. Medical history significant for hypertension, hyperlipidemia, DM2 insulin requiring, hyperlipidemia, nonalcoholic steatohepatitis, GERD, anxiety/mood disorder, medication noncompliance, hx terminated medication usage agreement as per outpatient records (failed urine drug screen 2016). Last confinement 2010 under General Surgery service for acute cholecystitis sta tus post cholecystectomy. Patient stopped taking home medications (lisinopril, atorvastatin, home insulin, etc.) more than two years ago because he felt sick from taking them. Last PCP visit was 3 years ago. 2 days history of achy swelling on left middle finger with note of some yellow drainage. No fever, no chills. No recollection of recent trauma. Patient seen at PCPs office today. Impression was finger cellulitis. IM ceftriaxone given at the office. Patient prescribed Keflex and Bactrim. Patient instructed to follow-up at the office tomorrow and to go to ER for worsening symptoms. SBP noted to be 210s at PCPs office. Patient denies headache, chest pain, shortness of breath, abdominal pain. Daptomycin and Zosyn administered at the ER. Medical History as above Surgical History : Back surgery, cholecystectomy Family History : DM, stomach cancer, hypertension, heart disease Personal/Social history : Non-smoker, no recent EtOH intake in years as per patient/, lawn care business Admission Exam Per Admitting Provider GENERAL: Slightly uncomfortable, obese, pleasant, no respiratory distress SKIN: Normal color, warm HEENT: Alopecia, pink palpebral conjunctivae, no ptosis, dry buccal mucosa NECK : Supple, no tenderness CHEST : CTA, no tenderness HEART : RRR, no obvious murmurs ABDOMEN: Some distention, nontender EXTREMITIES : No LE swelling/tenderness, tender indurated left middle finger with swelling with some extension to the hand, no other conspicuous deformities noted NEUROLOGIC : Coherent, no facial asymmetry, no other gross focality Principal Diagnosis Hypertensive urgency Finger Cellulitis Medication noncompliance Discharge Exam CONSTITUTIONAL: WNWD, vitals as above, generally NAD EYES: normal conjunctivae, no scleral icterus ENT: external ear and nose normal, oropharynx clear, MMM RESPIRATORY: clear to auscultation bilaterally, no crackles, rales or wheezes, normal respiratory effort CARDIOVASCULAR: regular rate and rhythm, S1 and 2 heard without murmurs, gallops or rubs, no JVD, no peripheral edema GASTROINTESTINAL: soft, nontender, nondistended, no guarding MUSCULOSKELETAL: strength 5/5 throughout, head is normocephalic and atraumatic SKIN: warm and dry, swelling of the third finger left hand with erythema and swelling spreading proximally and crossing dorsum of the wrist-somewhat improved but still significant. Tender to touch and limited ROM of the wrist or fingers- not much improved today. NEUROLOGIC: CN 2-12 grossly intact, normal cognition, normal speech, no tremor PSYCHIATRIC: alert cooperative and oriented to person, place and time. Discharge Data Allergies Allergy/AdvReac Type Severity Reaction Status Date / Time No Known Allergies Allergy Unverified 02/18/21 22:13 Consultations 02/18/21 20:16 ED Decision to Admit Stat 02/19/21 01:26 Consult Orthopedic Surgery Routine 02/19/21 04:44 Consult Cardiology Routine Ordered Studies Laboratory Results WBC 10.49 K/uL (4.8-10.8) 02/20/21 01:49 RBC 4.86 M/uL (4.7-6.1) 02/20/21 01:49 Hgb 14.7 g/dL (14.0-18.0) 02/20/21 01:49 Hct 41.4 % (42-52) L 02/20/21 01:49 MCV 85.2 fL (80-100) 02/20/21 01:49 MCH 30.2 pg (25-34) 02/20/21 01:49 MCHC 35.5 g/dL (32-36) 02/20/21 01:49 RDW Std Deviation 41.1 fL (36.4-46.3) 02/20/21 01:49 RDW Coeff of [place] 13.2 % (11.5-14.5) 02/20/21 01:49 Plt Count 251 K/uL (130-400) 02/20/21 01:49 MPV 10.0 fL (7.4-10.4) 02/20/21 01:49 Immature Gran % (Auto) 0.2 % 02/19/21 04:45 Neut % (Auto) 73.0 % 02/19/21 04:45 Lymph % (Auto) 16.9 % 02/19/21 04:45 [place] % (Auto) 9.1 % 02/19/21 04:45 Eos % (Auto) 0.7 % 02/19/21 04:45 Baso % (Auto) 0.1 % 02/19/21 04:45 Neut # (Auto) 6.59 K/uL (1.4-6.5) H 02/19/21 04:45 Lymph # (Auto) 1.52 K/uL (1.2-3.4) 02/19/21 04:45 [place] # (Auto) 0.82 K/uL (0.11-0.59) H 02/19/21 04:45 Eos # (Auto) 0.06 K/uL (0-0.5) 02/19/21 04:45 Baso # (Auto) 0.01 K/uL (0-0.2) 02/19/21 04:45 Immature Gran # (Auto) 0.02 K/uL (0.00-0.02) 02/19/21 04:45 ESR 48 mm/hr (0-14) H 02/20/21 01:49 APTT 28.3 Seconds (21.0-31.0) 02/19/21 04:45 PTT Ratio 1.1 02/19/21 04:45 Sodium 137 mmol/L (136-145) 02/20/21 01:44 Potassium 4.0 mmol/L (3.5-5.1) 02/20/21 01:44 Chloride 106 mmol/L (98-107) 02/20/21 01:44 Carbon Dioxide 26 mmol/L (21-32) 02/20/21 01:44 Anion Gap 5.0 (3-11) 02/20/21 01:44 BUN 18 mg/dl (7-18) 02/20/21 01:44 Creatinine 0.81 mg/dl (0.6-1.4) 02/20/21 01:44 Est Cr Clr Drug Dosing 110.1 ml/min 02/20/21 01:44 Est GFR ( Amer) 112.7 02/20/21 01:44 Est GFR (Non-Af Amer) 97.3 02/20/21 01:44 BUN/Creatinine Ratio 22.1 (10-20) H 02/20/21 01:44 Glucose 182 mg/dl (70-99) H 02/20/21 01:44 POC Glucose 178 mg/dl (70-99) H 02/20/21 19:55 Estimat Average Glucose 335 mg/dl 02/19/21 04:45 Hemoglobin A1c 13.3 % (4.5-5.6) H 02/19/21 04:45 Uric Acid 3.6 mg/dl (2.6-7.2) 02/18/21 19:04 Calcium 9.1 mg/dl (8.5-10.1) 02/20/21 01:44 Magnesium 2.2 mg/dl (1.8-2.4) 02/20/21 01:44 Total Bilirubin 0.5 mg/dl (0.2-1) 02/20/21 01:44 AST 101 U/L (15-37) H 02/20/21 01:44 ALT 358 U/L (12-78) H 02/20/21 01:44 Alkaline Phosphatase 269 U/L (45-117) H D 02/20/21 01:44 Ammonia 37.0 umol/L (11-32) H 02/20/21 01:44 Troponin I < 0.015 ng/ml (0-0.045) 02/19/21 04:45 C-Reactive Protein Cancelled 02/20/21 01:49 Total Protein 7.0 gm/dl (6.4-8.2) 02/20/21 01:44 Albumin 2.7 gm/dl (3.4-5.0) L 02/20/21 01:44 Globulin 4.3 gm/dl (2.5-4.0) H 02/20/21 01:44 Albumin/Globulin Ratio 0.6 (0.9-2) L 02/20/21 01:44 Triglycerides Cancelled 02/20/21 01:49 Cholesterol Cancelled 02/20/21 01:49 LDL Cholesterol, Calc Cancelled 02/20/21 01:49 VLDL Cholesterol, Calc Cancelled 02/20/21 01:49 HDL Cholesterol Cancelled 02/20/21 01:49 Cholesterol/HDL Ratio Cancelled 02/20/21 01:49 Lipase 90 U/L (73-393) 02/19/21 04:45 Beta-Hydroxybutyric Acd 1.04 mg/dl (0.2-2.81) 02/19/21 04:45 Procalcitonin < 0.05 ng/ml (0-0.5) 02/18/21 19:04 Urine Color Yellow 02/19/21 07:40 Urine Appearance Clear (Clear) 02/19/21 07:40 Urine pH 6.0 (4.5-7.5) 02/19/21 07:40 Ur Specific [place] 1.043 (1.000-1.030) H 02/19/21 07:40 Urine Protein 2+ (Negative) H 02/19/21 07:40 Urine Glucose (UA) 3+ (Negative) H 02/19/21 07:40 Urine Ketones Negative (Negative) 02/19/21 07:40 Urine Blood 1+ (Negative) H 02/19/21 07:40 Urine Nitrite Negative (Negative) 02/19/21 07:40 Urine Bilirubin Negative (Negative) 02/19/21 07:40 Urine Urobilinogen Negative (Negative) 02/19/21 07:40 Ur Leukocyte Esterase Negative (Negative) 02/19/21 07:40 Urine WBC (Auto) 1-5 /hpf (0-5) 02/19/21 07:40 Urine RBC (Auto) 5-10 /hpf (0-4) H 02/19/21 07:40 U Hyaline Cast (Auto) 1-5 /lpf (0-5) 02/19/21 07:40 U Epithel Cells (Auto) 0-5 /lpf (0-5) 02/19/21 07:40 Urine Bacteria (Auto) Negative (Negative) 02/19/21 07:40 Urine Opiates Screen Pos (Neg) H 02/19/21 07:40 U Codeine Confrm GC/MS NEGATIVE ng/mL (<50) 02/19/21 07:40 Ur Morphine (GC/MS) 2970 ng/mL (<50) H 02/19/21 07:40 Ur Hydrocodone (GC/MS) 170 ng/mL (<50) H 02/19/21 07:40 Ur Norhydrocodone 233 ng/mL (<50) H 02/19/21 07:40 Ur Noroxycodone NEGATIVE ng/mL (<50) 02/19/21 07:40 Urine Oxycodone (GC/MS) NEGATIVE ng/mL (<50) 02/19/21 07:40 U Oxymorphone GC/MS NEGATIVE ng/mL (<50) 02/19/21 07:40 Ur Methadone, Qual Neg (Neg) 02/19/21 07:40 Ur Hydromorphone (GC/MS) 103 ng/mL (<50) H 02/19/21 07:40 Urine Barbiturates Neg (Neg) 02/19/21 07:40 Ur Phencyclidine (PCP) Neg (Neg) 02/19/21 07:40 U Amphetamines Confirm 915 ng/mL (<250) H 02/19/21 07:40 U Amphetamin/Meth Scrn Pos (Neg) H 02/19/21 07:40 U Methamphetamin Confrm 87221 ng/mL (<250) H 02/19/21 07:40 Urine MDEA negative 02/19/21 07:40 MDMA (Ecstasy) Screen Pos (Neg) H 02/19/21 07:40 MDMA negative 02/19/21 07:40 Urine MDMA negative 02/19/21 07:40 U Benzodiazepines Scrn Neg (Neg) 02/19/21 07:40 Ur Cocaine Metabolite Neg (Neg) 02/19/21 07:40 U Marijuana (THC) Screen Neg (Neg) 02/19/21 07:40 Drug Screen Comment SEE NOTE 02/19/21 07:40 COVID-19 Eval Order [facility] at [facility] 02/18/21 19:58 SARS-CoV-2 (PCR) NEGATIVE (Negative) 02/18/21 19:58 Influenza Type A (PCR) Negative (Neg) 02/18/21 19:58 Influenza Type B (PCR) Negative (Neg) 02/18/21 19:58 RSV (RT-PCR) Negative (Neg) 02/18/21 19:58 Impressions Hand X-Ray 02/18/21 19:46 XR hand LT min 3V routine CLINICAL HISTORY: 3rd finger and hand cellulitis COMPARISON: None. DISCUSSION: No acute fractures or dislocations are visualized. There is an old fifth metacarpal fracture. There are osteoarthritic changes most pronounced the level the distal interphalangeal joints. There is soft tissue edema most pronounced involving the third finger. There are no bony destructive changes to indicate acute osteomyelitis IMPRESSION: 1. Old posterior back changes 2. Osteoarthritic changes 3. No acute fractures 4. Soft tissue swelling 5. No conventional radiographic evidence of acute osteomyelitis ACT 112: Negative or not required by law. Electronically signed by: Christian Villaseñor M.D. 02/18/2021 8:42 PM Chest X-Ray 02/18/21 23:31 SINGLE VIEW CHEST CLINICAL HISTORY: Atypical chest pain. FINDINGS: An AP, portable, upright chest radiograph is compared to study dated 12/24/2016. The examination is degraded by portable technique and apical lordotic positioning. The cardiomediastinal silhouette is unremarkable. There is bibasilar scarring/atelectasis. No airspace consolidation or large pleural effusion is identified. No pneumothorax is seen. The bony thorax is grossly intact. IMPRESSION: No acute cardiopulmonary abnormality. ACT 112: Negative or not required by law. Electronically signed by: Coleman Arambula M.D. 02/19/2021 7:53 AM Chest CTA 02/19/21 01:00 CT angio chest PE protocol CT DOSE: 1520.57 mGy.cm HISTORY: 60 years-old Male with PE. Acute shortness of breath TECHNIQUE: Multiple CTA images of the chest were obtained after the intravenous administration of 116 ml Optiray 320. Coronal and sagittal MIPS were obtained from the axial data set and were submitted for review. All measurements were obtained according to NASCET criteria. A dose lowering technique was utilized adhering to the principles of ALARA. COMPARISON: PET CT 12/14/2015, chest CT 11/26/2015, CT abdomen pelvis 12/24/2016 FINDINGS: CTA: Heart is upper limits of normal in size. There is no pericardial effusion. Mild to moderate coronary artery calcifications. There is no thoracic aortic aneurysm or dissection. There is patency of the imaged great vessels. Main pulmonary artery is dilated measuring 3.9 cm which may reflect underlying pulmonary artery hypertension. No filling defects identified to suggest thromboembolic disease. CT CHEST: No discrete thyroid nodule. There is no adenopathy identified. No pneumothorax or pleural effusion. Mild linear subsegmental areas of scarring/atelectasis in the lung bases. There are 2 subadjacent areas of nodular consolidation involving the basal right lower lobe on image 54 both of which measure 1.2 cm. 8 mm groundglass nodule of the basal right lower lobe, image 61. 7 mm solid nodule of the basal right lower lobe, image 79. 1.5 cm groundglass nodule of the superior segment right lower lobe, image 125 contains a 3 mm central solid nodule. 4 mm solid nodule of the right lower lobe, image 128. Additional tiny subcentimeter groundglass densities of the right middle lobe with 9 mm groundglass density of the superior segment left lower lobe, image 129. All of these findings are new from 2016. The central airways are patent. No pneumoperitoneum. No acute process of the imaged upper abdomen. Unremarkable soft tissues. Severe degeneration of the right sternoclavicular joint with air in the joint space, likely on a degenerative basis. IMPRESSION: 1. No pulmonary emboli. 2. Scattered groundglass and solid pulmonary nodular opacities as above including two subadjacent 1.2 cm nodules of the basal right lower lobe and a subsolid 1.5 cm nodule of the superior segment right lower lobe. These findings are new from the 2016 and 2017 comparisons and require a 3 month follow-up chest CT for further characterization. 3. No adenopathy or pleural effusion. ACT 112: Negative or not required by law. The above report was generated using voice recognition software. It may contain grammatical, syntax or spelling errors. Electronically signed by: Niranjan Bhagat M.D. 02/19/2021 7:[address] 02/19/21 01:00 CT SCAN OF THE LEFT HAND WITH IV CONTRAST CLINICAL HISTORY: Left hand swelling. Possible spider bite. COMPARISON STUDY: Radiographs of the left hand dated 02/18/2021. TECHNIQUE: Following the IV administration of 116 cc of Optiray 320, CT scan of the hand is performed from the wrist to the fingertips. Images are reviewed in the axial, sagittal, and coronal planes. IV contrast was administered without complication. The examination is degraded by suboptimal positioning within the CT gantry. A dose lowering technique was utilized adhering to the principles of ALARA. FINDINGS: The skeletal structures are well mineralized. There is chronic posttraumatic deformity of the fifth metacarpal. No acute fracture is identified. No bony erosion or periostitis is identified. The joint spaces of the hand appear maintained. Minimal cystic degenerative change is noted in the carpal bones. No erosive disease is seen. There is mild subcutaneous soft tissue edema, likely representing cellulitis. No organized fluid collection is seen to suggest abscess. IMPRESSION: 1. No acute bony abnormality is identified. 2. Mild soft tissue tissue edema suggests cellulitis. 3. No organized fluid collection is seen to indicate abscess. ACT 112: Negative or not required by law. Dictated: 02/19/2021 8:28 AM Transcribed: 02/19/2021 9:39 AM [place] [id number] [facility] Electronically signed by: Coleman Arambula M.D. 02/19/2021 9:40 AM Liver Ultrasound 02/20/21 09:31 ABDOMINAL ULTRASOUND, RIGHT UPPER QUADRANT HISTORY: elevated LFTs, ALP, h/o meth use. COMPARISON: Abdomen and pelvis CT 12/24/2016. FINDINGS: Pancreas: The pancreatic tail is obscured by overlying bowel gas. The remaining portions of the pancreas are within normal limits. Liver: Unremarkable. Gallbladder: The gallbladder is surgically absent. CBD: 5 mm. Right kidney: No hydronephrosis. IMPRESSION: 1. Prior cholecystectomy. 2. Normal liver. ACT 112: Negative or not required by law. Electronically signed by: Marvin Amaya M.D. 02/20/2021 12:45 PM Diabetes Follow up Diabetes Follow-up Needed for HgbA1c >9% Hospital Course (1) Cellulitis of dorsum of hand: In the setting of uncontrolled diabetes and erythema that is spreading proximally crossing multiple joints will broaden coverage from doxycycline to now include daptomycin and cefepime pending cultures and clinical improvement. Daptomycin is on board to cover as the initial cellulitis was purulent in nature. There is no current drainage while in the hospital. Ortho was consulted and recommends continued current management with antibiotic therapy. Continue pain control efforts. He left AMA and was instructed to continue the prior oral antibiotics as prescribed by his PCP given prior to arrival in the hospital. Close PCP follow-up was strongly recommended and his PCP was notified of his abrupt departure. (2) Asymptomatic hypertensive urgency: Pain is driving hypertension, additional pain medicine options were offered. The patient is not currently on anything for hypertension at home and was placed on lisinopril 20 mg daily which will be continued at this time. Continue monitoring BMP and giving additional antihypertensives as needed. Of note methamphetamine withdrawal may be contributing to elevated blood pressure also. BP was improved prior to departure and new oral lisinopril and HCTZ was ordered for him to continue daily as outpatient. Bloodwork for monitoring as outpatient in two weeks per PCP. (3) DMII (diabetes mellitus, type 2): Basal bolus insulin was started, hemoglobin A1c is greater than 13. Ideally patient should go out on Metformin and Lantus once nightly, however, he left AMA prior to this being arranged. Close PCP follow-up strongly recommended. (4) Methamphetamine addiction: Monitor for signs of withdrawal over the next 24 to 48 hours. Utilize Ativan as needed anxiety. (5) Transaminitis: Initial work-up with right upper quadrant ultrasound reveals prior cholecystectomy with a normal liver. This may be related to recent methamphetamine use. Close follow-up as outpatient is recommended. Advised against use of this recreational street drug. Total Time Total Time Spent Total Time Spent (In Minutes): 60 Total Time Includes: Examination of the Patient, Discharge Planning, Medication Reconciliation and Communication With Other Providers Discharge Plan Discharge Items Patient Disposition: Against Medical Advice Reason For Visit: HTN URG, FINGER CELLULITIS Activity: Resume your previous activity Non-emergency contact: Primary Care Provider Follow-up/Referrals: Elle Dickinson DO [Outside Practitioners] - (Date & Time 02/23/2021 11:10 AM Provider Elle Dickinson DO Department Internal Medicine [facility] ) Pending Studies at Discharge: Yes Stand-Alone Forms: My [facility] Medications and DC Order Prescriptions: New lisinopril 40 mg tablet 40 mg PO DAILY Qty: 30 RF: 0 hydrochlorothiazide 12.5 mg tablet 12.5 mg PO QAM Qty: 30 RF: 0 No Action No Known Home Medications RF: 0 Discharge Orders: Left Against Medical Advice (Routine); Ordered 02/20/21 Ordered By: Aubrey Ocasio Admission Data Admit Date/Time: 02/19/21 12:16 Attending Provider: Kristin Franz Admit Provider: Aubrey Ocasio Primary Care Provider: PCP,NO Other Providers: Aubrey Ocasio ; Michael Win ; Bry Eubanks ; Savage Dawn ; Bhavya Pimentel Thomas J ; Kaylyn Jackson ; Emre Marie ; George Huizar ; Jose Suarez ; George Mccallum Andrew J. ; Jose Auguste ; Que Gregg ; Marcelino Salazar ; Chapin Nagy ; Doyle Fitzpatrick ; Kaylyn Fernandez ; Gume Ambrocio ; Derick Cabello ; Milly Downs ; Sam Blandon ; Caprice Mckeon ; Sridhar Welsh ; Nirmal Roque ; Carl Stroud ; Ankit Perdomo ; Que Mckeon ; George Gooden ; Ailyn Benites ; Deborah Nicholson ; Bebeto Noble
[2021-02-21] MEDS ORDERED: VANCOMYCIN TROUGH ONE (01:30)
[2021-02-21] MEDS ORDERED: hydroCHLOROthiazide 25 MG TAB PO SCH (09:00)
[2021-02-22 12:07] LABS: Amphetamine Urine, Confirm 915 ng/mL (<250); Codeine Urine NEGATIVE ng/mL (<50); Hydrocodone Urine 170 ng/mL (<50); Hydromor Urine 103 ng/mL (<50); MDA negative; MDEA negative; MDMA (Ecstasy) Urine, Confirm negative; Methamphetamine, Ur Confirm 10400 ng/mL (<250); Morphine Urine 2970 ng/mL (<50); Norhydrocodone Conf Ur 233 ng/mL (<50); Noroxycodone Urine NEGATIVE ng/mL (<50); Oxycodone Urine NEGATIVE ng/mL (<50); Oxymorph Urine NEGATIVE ng/mL (<50)
== END 2021-02-20 21:29 | disposition left against medical advice (07) | DRG 603 ==
LOC: ED 15:56 → 2N 15:56